=== PATIENT | female | born 1935 | race Caucasian/White ===

== ENCOUNTER 2017-01-30 07:37 | Day surgery (SDC) | payer MEDICARE ==
[~2017-01-30 07:37] MED LIST: Buffered Lidocaine 0.9% SYRIN* 5 ML/SYR SYRINGE INTRADERM ONE; Famotidine IV* 10 MG/ML 2 ML (20 mg) IV ONE
[2017-01-30] MEDS ORDERED: Famotidine IV* 10 MG/ML 2 ML (20 mg) ONE (08:20)
[2017-01-30] MEDS ORDERED: Bupivacaine 0.5% SDV PF* 30 ML VIAL ONE (08:30)
[2017-01-30] MEDS ORDERED: Lidocaine 1% INJ* 10 MG/ML 30 ML SDV ONE (08:30)
[2017-01-30] MEDS ORDERED: Levalbuterol 0.63MG/3ML NEB INH ONE (08:33)
[2017-01-30] MEDS ORDERED: Acetaminophen TAB* 325 MG PO PRN (08:35)
[2017-01-30] MEDS ORDERED: oxyCODONE TAB* 5 MG TAB PO PRN (08:35)
[2017-01-30] MEDS ORDERED: HYDROmorphone* 1 MG/ML 1 ML SYR IV PRN (08:35)
[2017-01-30] MEDS ORDERED: DiMENhydriNATE IV* 50 MG/ML VIAL IV PUSH PRN (08:35)
[2017-01-30] MEDS ORDERED: Levalbuterol 1.25MG/0.5ML NEB ONE (08:38)
[2017-01-30] MEDS ORDERED: KETAMINE HCL* 50 MG/ML 10 ML VIAL ONE (08:43)
[2017-01-30] MEDS ORDERED: fentaNYL* 50 MCG/ML 2 ML VIAL (100 MCG VIAL) ONE (08:43)
[2017-01-30] MEDS ORDERED: Midazolam* 1 MG/ML 5 ML VIAL (5 MG) ONE (08:43)
[2017-01-30] MEDS ORDERED: Lidocaine 2% PF * 5 ML VIAL ONE (08:48)
[2017-01-30] MEDS ORDERED: Ketorolac INJ* 30 MG/ML 1 ML VIAL ONE (08:48)
[2017-01-30] MEDS ORDERED: Propofol* 10 MG/ML 20 ML BTL IV PUSH ONE (08:48)
[2017-01-30] MEDS ORDERED: Ondansetron INJ* 2 MG/ML VIAL ONE (08:48)
--- NOTE | 2017-01-30 10:29 | RAD ---
INDICATION: chest port placement COMPARISONS: None relevant TECHNIQUE: Fluoroscopy was provided for a vascular access procedure. Total fluoroscopy time is: 80.6 seconds FINDINGS: Spot images demonstrate a right-sided chest port from a subclavian approach with the tip overlying the superior vena cava. IMPRESSION: FLUOROSCOPY WAS PROVIDED FOR A VASCULAR ACCESS PROCEDURE CPT II Codes: 6045F
--- NOTE | 2017-01-30 10:30 | RAD ---
HISTORY: Status post chest port placement COMPARISONS: November 28, 2016 VIEWS:1: Single frontal portable view of the chest at 10:08 AM FINDINGS: LINES AND TUBES: A right-sided chest port is noted. The tip overlies the superior vena cava. CARDIOMEDIASTINAL SILHOUETTE: The cardiomediastinal silhouette is normal for portable technique. PLEURA: There is no appreciable pneumothorax. LUNG PARENCHYMA: There is hyperinflation ABDOMEN: The upper abdomen is clear. There is no subphrenic gas. BONES AND SOFT TISSUES: No bone or soft tissue abnormalities are noted. IMPRESSION: LINES AND TUBES ABOVE. HYPERINFLATION. NO ACTIVE CARDIOPULMONARY DISEASE.
[2017-01-30 11:10] VITALS: BP 136/50
--- NOTE | 2017-01-31 03:05 | OP ---
[facility]: [facility]; Dr. Teofilo Delgado OPERATIVE NOTE: DATE OF OPERATION: 01/30/17 DATE OF : 35 SURGEON: Hermelinda Jaramillo MD MORTGAGE PROTECTION SPECIALIST: There was no data assistant for this case. PRE-OP DIAGNOSIS: Ovarian cancer. POST-OP DIAGNOSIS: Ovarian cancer. OPERATIVE PROCEDURE: PowerPort placement. INDICATION: Ms. López is an 81-year-old woman with a recent diagnosis of ovarian cancer, who must undergo chemotherapy. Plans were therefore made for PowerPort placement. She was brought to the op erating room, placed on the OR table in a supine position and given IV sedation. The right chest wa s prepped and draped in the usual sterile fashion. After infiltrating with local anesthetic and usi ng a Seldinger technique, a wire was placed into the right subclavian vein. A port pocket was then created by infiltrating the chest wall with local anesthetic making an incision and elevating the sk in inferiorly. Subcutaneous tissue was divided with electrocautery to do this. Once the pocket was of a size to accommodate the port, the catheter was tunneled from the port pocket site to the wire exit site and then a dilator and introducer were placed over the wire. The dilator and wire were re moved. The catheter was advanced through the introducer under fluoroscopic visualization into the s uperior vena cava. The introducer was then peeled away. The catheter was trimmed to an appropriate length and attached to the port, which was inserted into the port pocket. The port was secured to t he chest wall with 2-0 Surgipro stitches and then the function of the port was checked and found to be adequate. Closure was then accomplished with 3-0 Polysorb in subcutaneous layer, and the skin wa s closed with 4-0 Surgipro in a subcuticular fashion. Since she was going directly to chemotherapy from the OR, an angled Bradford needle was placed into the port. The port was flushed and then the dry sterile dressing was applied. All sponge and instrument counts were correct. The patient tolerate d the procedure well and was transferred to Recovery in a stable condition. [id number]/[facility] #: [id number]
== END 2017-01-30 10:49 ==
LOC: OR 07:37
PROVIDERS: ATTEND Surgery
DX: C56.9 Malignant neoplasm of unspecified ovary (principal); I47.1 Supraventricular tachycardia; I10 Essential (primary) hypertension; J44.9 Chronic obstructive pulmonary disease, unspecified; Z87.891 Personal history of nicotine dependence; Z85.3 Personal history of malignant neoplasm of breast; R91.8 Other nonspecific abnormal finding of lung field
CPT/HCPCS: 71010; A9270-GY; C1788; J1642; J1885; J2001; J2250; J2405; J2704; J3010

== ENCOUNTER 2017-02-17 01:21 | Emergency (ER) | payer MEDICARE ==
--- NOTE | 2017-02-17 02:07 | ED ---
Key Barrera Edward, scribed for Leroy Iniguez MD on 02/17/17 at 0143 . Adult Trauma - HPI Summary HPI Summary: 81 y/o female BIBA s/p fall. Patient c/o bilateral lower back pain. Associated sx: chronic L shoulder pain. The patient was standing while getting a glass of water from the fridge when she fell backwards and hit the floor. Denies hitting head. No LOC. Patient normally uses a cane to get around. - History of Current Complaint Stated Complaint: FALL Hx Obtained From: Patient Mechanism of Injury: Fall Loss of Consciousness: no loss of consciousness Onset of Pain: Immediate Location: Back - Lower back Associated Signs & Symptoms: Positive: Other: - Chronic L shoulder pain. Negative: Loss of Consciousness - Additional Pertinent History Primary Care Physician: BRO - Allergy/Home Medications Allergies/Adverse Reactions: Allergies Allergy/AdvReac Type Severity Reaction Status Date / Time Penicillins Allergy Unknown Rash Verified 01/30/17 08:04 Vancomycin Allergy Unknown RED MAN Verified 01/30/17 08:04 SYNDROME Adhesive Tape Allergy SKIN Verified 01/30/17 08:04 REDNESS Latex Allergy RASH AND Verified 01/30/17 08:04 ITCHY PMH/Surg Hx/FS Hx/Imm Hx Previously Healthy: No Endocrine/Hematology History: Denies: Hx Diabetes Cardiovascular History: Reports: Hx Angina, Hx Hypercholesterolemia, Hx Hypertension, Other Cardiovascular Problems/Disorders - HTN, ON MEDS, missed beats Beth Barrera 11/29/16 admission Denies: Hx Congestive Heart Failure, Hx Coronary Artery Disease, Hx Myocardial Infarction, Hx Valvular Heart Disease Respiratory History: Denies: Hx Asthma, Hx Chronic Obstructive Pulmonary Disease (COPD) GI History: Reports: Hx Gastroesophageal Reflux Disease - ON MEDICATION FOR, Hx Hiatal Hernia, Hx Jaundice - YELLOW JAUNDICE A CHILD History: Denies: Hx Renal Disease Musculoskeletal History: Reports: Hx Arthritis - LEFT SHOULDER, Other Musculoskeletal History - cellulitis Sensory History: Reports: Hx Cataracts - BILATERAL, Hx Contacts or Glasses - GLASSES Denies: Hx Hearing Aid Opthamlomology History: Reports: Hx Cataracts - BILATERAL, Hx Contacts or Glasses - GLASSES - Cancer History Cancer Type, 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 11/2010 - ILEOSTOMY REMOVED-[facility] [place]. TONSILLECTOMY A CHILD. LEFT INGUINAL HERNIA REPAIR -[facility]. RIGHT INGUINAL HERNIA REPAIR-[facility]. 09/07/2012- VENTRAL HERNIA REPAIR- [facility]. VAGINAL HYSTERECTOMY-[facility]. RIGHT BREAST LUMPECTOMY-[facility]. EYE SURGERY Hx Anesthesia Reactions: No - Immunization History Date of Tetanus Vaccine: utd Date of Influenza Vaccine: utd Infectious Disease History: Denies: Traveled Outside the [place] in Last 30 Days Comment Only: Hx Hepatitis - YELLOW JAUNDICE A CHILD - Family History Known Family History: Positive: Hypertension - Social History Occupation: Retired Lives: Alone Alcohol Use: None Hx Substance Use: No Substance Use Type: Reports: None Hx Tobacco Use: Yes Smoking Status (MU): Former Smoker Amount Used/How Often: 1/2 PPD X 50 YEARS Review of Systems Constitutional: Negative Eyes: Negative ENT: Negative Cardiovascular: Negative Respiratory: Negative Gastrointestinal: Negative Genitourinary: Negative Positive: Arthralgia - L shoulder pain (chronic), Myalgia - Bilateral lower back pain Skin: Negative Neurological: Negative Negative: Syncope Psychological: Normal All Other Systems Reviewed And Are Negative: Yes Physical Exam Triage Information Reviewed: Yes Vital Signs On Initial Exam: Initial Vitals Temp Pulse Resp BP Pulse Ox 98 F 81 16 158/46 95 02/17/17 01:37 02/17/17 01:37 02/17/17 01:37 02/17/17 01:37 02/17/17 01:37 Vital Signs Reviewed: Yes Appearance: Positive: Pain Distress - mild discomfort, Thin Skin: Positive: Warm Head/Face: Positive: Normal Head/Face Inspection Eyes: Positive: GRETA ENT: Positive: Hearing grossly normal Neck: Positive: Supple, Nontender Respiratory/Lung Sounds: Positive: Breath Sounds Present Cardiovascular: Positive: RRR Abdomen Description: Positive: Soft Musculoskeletal: Positive: Other - mild diffuse lower lumbar tenderness Neurological: Positive: Alert, Oriented to Person Place, Time Psychiatric: Positive: Affect/Mood Appropriate Diagnostics - Vital Signs Vital Signs Temp Pulse Resp BP Pulse Ox 02/17/17 01:39 98 F 81 16 154/46 95 02/17/17 01:37 98 F 81 16 158/46 95 - Laboratory Lab Statement: Any lab studies that have been ordered have been reviewed, and results considered in the medical decision making process. - Radiology Lumbar spine XR Xray Interpretation: No Acute Changes - Negative for acute pathology Radiology Interpretation Completed By: ED Physician Re-Evaluation - Re-Evaluation First Eval Change: Improved - results d/w pt Adult Trauma Course/Dx - Course Assessment/Plan: 81 y/o female BIBA s/p fall. Patient c/o bilateral lower back pain. Associated sx: chronic L shoulder pain. No LOC, and pt did not hit her head. Lumbar spine XR negative for acute pathology. Pt will be d/c home with f/ u with PCP. - Diagnoses Provider Diagnoses: Contusion Discharge - Discharge Plan Condition: Stable Disposition: HOME Patient Education Materials: Contusion in Adults (ED) Referrals: Teofilo Delgado MD [Primary Care Provider] - 3 Days (Please follow up in 2-3 days) The documentation as recorded by the Key fuller Edward accurately reflects the service I personally performed and the decisions made by , Leroy Iniguez MD.
[2017-02-17 03:14] VITALS: BP 141/51
--- NOTE | 2017-02-17 08:10 | RAD ---
Indication: Fall, back pain 5 views of lumbar spine demonstrates mild compression of the L3 vertebra of less than 25%. Osteopenia is noted. IMPRESSION: Less than 25% compression of L3.
== END 2017-02-17 03:13 | disposition home or self-care (01) ==
LOC: ED 01:21
DX: T14.8 Other injury of unspecified body region (principal); W19.XXXA Unspecified fall, initial encounter; Y93.89 Activity, other specified; Y92.9 Unspecified place or not applicable; I10 Essential (primary) hypertension; E78.00 Pure hypercholesterolemia, unspecified; K21.9 Gastro-esophageal reflux disease without esophagitis; M54.5 Low back pain; M25.512 Pain in left shoulder; G89.29 Other chronic pain; Z87.891 Personal history of nicotine dependence; Z88.0 Allergy status to penicillin; Z85.3 Personal history of malignant neoplasm of breast
CPT/HCPCS: 72110

== ENCOUNTER 2017-02-22 16:02 | Inpatient (IN) | payer MEDICARE ==
[2017-02-22 18:30] LABS: Hematocrit 21 % (35-47); Mean Corpuscular HGB Conc 34 g/dl (31-36); Mean Corpuscular Hemoglobin 30 pg (27-31); Mean Corpuscular Volume 91 fL (80-97); Mean Platelet Volume 7 um3 (7.4-10.4); Red Cell Distribution Width 20 % (10.5-15); White Blood Count 6.5 10^3/ul (3.5-10.8)
[2017-02-22 18:44] LABS: Albumin 3.1 g/dL (3.2-5.2); BUN/Creatinine Ratio 24.5 (8-20); C Reactive Protein 62.42 mg/L (< 5.00); Calcium 8.8 mg/dL (8.6-10.3); EGFR Non-African American 49.8 (>60); Globulin 3.1 g/dL (2-4); Potassium 2.9 mmol/L (3.5-5.0); Total Bilirubin 0.5 mg/dL (0.2-1.0); Total Protein 6.2 g/dL (6.4-8.9)
[2017-02-22] MEDS ORDERED: Potassium Chlor TAB* 20 MEQ TAB.ER PO ONE (18:54)
[2017-02-22 19:14] LABS: Magnesium 1.5 mg/dL (1.9-2.7)
--- NOTE | 2017-02-22 19:33 | RAD ---
CLINICAL HISTORY: Right hip and pelvic pain after a fall almost one week earlier COMPARISON: CTA abdomen and pelvis with runoff dated October 13, 2016 TECHNIQUE: Multiple contiguous axial CT scans were obtained of the abdomen and pelvis after the administration of intravenous contrast. Coronal and sagittal multiplanar reformations are submitted for review. FINDINGS: The visualized bones of the pelvis and right hip are intact and appropriately aligned. There is no discernible fracture or dislocation. Degenerative changes of the lumbar spine includes loss of intervertebral disc height. Again seen is a mixed attenuation, partially septated lesion in the right upper pelvis/abdomen measuring 11.7 x 15.6 cm in the axial plane, slightly smaller when compared to the previous CTA. The visualized portions of the small and large bowel are not pathologically distended. There is surgical material at the right hemicolon. There is advanced calcified atherosclerosis of the lower abdominal aorta and iliac arteries. IMPRESSION: 1. Age-appropriate degenerative changes of the low lumbar spine, pelvis and right hip without displaced fracture or dislocation. 2. There is been a small interval decrease in the size of the left adnexal mixed attenuation mass when compared to the October 13, 2016 CTA. 3. Additional chronic, degenerative and iatrogenic findings described in the body of the report.
[2017-02-22] MEDS ORDERED: Magnesium Sulfate 1 GM IV* 1 GM/100 ML BAG IV ONE (19:44)
[2017-02-22] MEDS: KCL 10 MEQ/50 ML IVPREMIX* 10 MEQ/50 ML BAG IV SCH ×2 (20:03→23:28)
[2017-02-22] MEDS ORDERED: Albuterol HFA INHALER* 8 gm MDI INH PRN (21:35)
[2017-02-22] MEDS ORDERED: Chlorpheniramine Maleate TAB* 4 MG PO PRN (21:35)
[2017-02-22] MEDS ORDERED: Morphine INJ* 2 MG/ML 1 ML SYRINGE IV PRN (21:37)
[2017-02-22] MEDS ORDERED: Ondansetron INJ* 2 MG/ML VIAL IV PRN (21:37)
--- NOTE | 2017-02-22 22:36 | ED ---
Fish Barrera Thomas, scribed for Raleigh Alicia MD on 02/22/17 at 1640 . Lower Extremity - HPI Summary HPI Summary: The pt is an 81 y/o F accompanied by daughter presenting to the ED c/o leg pain and hip pain s/p a fall 6 days ago. She denies significant pain whe she remains motionless, but she describes a pain 4-5/10 when she is standing or ambulating. She is a [place] patient of Dr. Christensen and she states that she has a pelvic mass. After her initial fall, she had lower back pain and an XR performed 6 days ago revealed a contusion. Over the last week, she had SOB (with exertion) and has had difficulty walking. Her last chemotherapy appointment was 3 weeks ago. Today in the ED, she additionally c/o a cough (unchanged since a week ago). She denies nausea, fevers, and chills. PMHx: angina, HLD, HTN, jaundice, GERD, arthritis. PSHx: sigmoidecomy, ileostomy. SHx: former smoker, no alcohol, no illicit drugs. FHx: HTN. - History of Current Complaint Chief Complaint: EDExtremityLower Stated Complaint: RT LEG/HIP PAIN Time Seen by Provider: 02/22/17 16:25 Hx Obtained From: Patient, Family/Toddler Caregiver - accompanied by daughter Mechanism Of Injury: Fall From A Standing Position Onset of Pain: Days - 6 days Onset/Duration: Still Present Severity Currently: Moderate Pain Intensity: 5 Pain Scale Used: 0-10 Numeric Timing: Constant Location: Is Discrete @ - leg pain, hip pain Associated Signs And Symptoms: Positive: Other - POS: SOB (with exertion), difficulty walking, cough (unchanged since a week ago); NEG: nausea, chills. Negative: Fever Aggravating Factor(s): Standing, Ambulation, Movement Alleviating Factor(s): Nothing - Allergies/Home Medications Allergies/Adverse Reactions: Allergies Allergy/AdvReac Type Severity Reaction Status Date / Time Penicillins Allergy Unknown Rash Verified 01/30/17 08:04 Vancomycin Allergy Unknown RED MAN Verified 01/30/17 08:04 SYNDROME Adhesive Tape Allergy SKIN Verified 01/30/17 08:04 REDNESS Latex Allergy RASH AND Verified 01/30/17 08:04 ITCHY PMH/Surg Hx/FS Hx/Imm Hx Previously Healthy: No Endocrine/Hematology History: Denies: Hx Diabetes Cardiovascular History: Reports: Hx Angina, Hx Hypercholesterolemia, Hx Hypertension, Other Cardiovascular Problems/Disorders - HTN, ON MEDS, missed beats Mobitz I 11/29/16 admission Denies: Hx Congestive Heart Failure, Hx Coronary Artery Disease, Hx Myocardial Infarction, Hx Valvular Heart Disease Respiratory History: Denies: Hx Asthma, Hx Chronic Obstructive Pulmonary Disease (COPD) GI History: Reports: Hx Gastroesophageal Reflux Disease - ON MEDICATION FOR, Hx Hiatal Hernia, Hx Jaundice - YELLOW JAUNDICE A CHILD History: Denies: Hx Renal Disease Musculoskeletal History: Reports: Hx Arthritis - LEFT SHOULDER, Other Musculoskeletal History - cellulitis Sensory History: Reports: Hx Cataracts - BILATERAL, Hx Contacts or Glasses - GLASSES Denies: Hx Hearing Aid Opthamlomology History: Reports: Hx Cataracts - BILATERAL, Hx Contacts or Glasses - GLASSES - Cancer History Cancer Type, Location and Year: BREAST [place] Hx Chemotherapy: No Hx Radiation Therapy: Yes - Surgical History Surgery Procedure, Year, and Place: 09/2010- [place] [place] [place] TONSILLECTOM[place] A CHILD. [place] [place] [place] 09/07/2012- [place] [facility] [place]. [place] [place] [place] E[place] Hx Anesthesia Reactions: No - Immunization History Date of Tetanus Vaccine: utd Date of Influenza Vaccine: utd Infectious Disease History: No Infectious Disease History: Denies: Traveled Outside the US in Last 30 Days Comment Only: Hx Hepatitis - YELLOW JAUNDICE A CHILD - Family History Known Family History: Positive: Hypertension - Social History Alcohol Use: None Hx Substance Use: No Substance Use Type: Reports: None Hx Tobacco Use: Yes Smoking Status (MU): Former Smoker Amount Used/How Often: 1/2 PPD X 50 YEARS Review of Systems Constitutional: Negative Negative: Fever, Chills Eyes: Negative ENT: Negative Cardiovascular: Negative Positive: Shortness Of Breath - with exertion, Cough - unchanged since a week ago Gastrointestinal: Negative Negative: Nausea Genitourinary: Negative Positive: Other - POS: hip pain, leg pain (low pain when motionless, 4-5/10 when standing or ambulating), difficulty walking Skin: Negative Neurological: Negative Psychological: Normal All Other Systems Reviewed And Are Negative: Yes Physical Exam - Summary Physical Exam Summary: VITAL SIGNS: Reviewed. GENERAL: ~Patient is a well-developed and nourished female who is lying comfortable in the stretcher. ~Patient is not in any acute respiratory distress. HEAD AND FACE: No signs of trauma. ~No ecchymosis, hematomas or skull depressions. No sinus tenderness. EYES: PERRLA, EOMI x 2, No injected conjunctiva, no nystagmus. EARS: Hearing grossly intact. Ear canals and tympanic membranes are within normal limits. MOUTH: Oropharynx within normal limits. NECK: Supple, trachea is midline, no adenopathy, no JVD, no carotid bruit, no c- spine tenderness, neck with full ROM. CHEST: Symmetric, no tenderness at palpation LUNGS: Clear to auscultation bilaterally. No wheezing or crackles. CVS: Regular rate and rhythm, S1 and S2 present, no murmurs or gallops appreciated. ABDOMEN: Soft, non-tender. No signs of distention. No rebound no guarding, and no masses palpated. Bowel sounds are normal. EXTREMITIES: Decreased ROM in her R hip secondary to pain. Good pulses, good cap refill. 1+ edema in both lower extremities. Otherwise, FROM in all other major joints, no cyanosis or clubbing. NEURO: Alert and oriented x 3. No acute neurological deficits. Speech is normal and follows commands. SKIN: Dry and warm Triage Information Reviewed: Yes Vital Signs On Initial Exam: Initial Vitals Temp Pulse Resp BP Pulse Ox 97.3 F 71 22 142/43 100 02/22/17 16:13 02/22/17 16:13 02/22/17 16:13 02/22/17 16:13 02/22/17 16:13 Vital Signs Reviewed: Yes - Chapin Coma Scale Coma Scale Total: 15 Diagnostics - Vital Signs Vital Signs Temp Pulse Resp BP Pulse Ox 02/22/17 16:13 97.3 F 71 22 142/43 100 - Laboratory Lab Results: Lab Results 02/22/17 02/22/17 Range/Units 18:20 18:20 WBC 6.5 (3.5-10.8) 10^3/ul RBC 2.30 L (4.0-5.4) 10^6/ul Hgb 7.0 L (12.0-16.0) g/dl Hct 21 L (35-47) % MCV 91 (80-97) fL MCH 30 (27-31) pg MCHC 34 (31-36) g/dl RDW 20 H (10.5-15) % Plt Count 238 (150-450) 10^3/ul MPV 7 L (7.4-10.4) um3 Neut % (Auto) 74.5 (38-83) % Lymph % (Auto) 10.5 L (25-47) % Prentiss % (Auto) 13.1 H (1-9) % Eos % (Auto) 1.5 (0-6) % Baso % (Auto) 0.4 (0-2) % Absolute Neuts (auto) 4.9 (1.5-7.7) 10^3/ul Absolute Lymphs (auto) 0.7 L (1.0-4.8) 10^3/ul Absolute Monos (auto) 0.9 H (0-0.8) 10^3/ul Absolute Eos (auto) 0.1 (0-0.6) 10^3/ul Absolute Basos (auto) 0 (0-0.2) 10^3/ul Absolute Nucleated RBC 0.01 10^3/ul Nucleated RBC % 0.2 Sodium 131 L (133-145) mmol/L Potassium 2.9 L (3.5-5.0) mmol/L Chloride 91 L (101-111) mmol/L Carbon Dioxide 33 H (22-32) mmol/L Anion Gap 7 (2-11) mmol/L BUN 26 H (6-24) mg/dL Creatinine 1.06 H (0.51-0.95) mg/dL Est GFR ( Amer) 64.0 (>60) Est GFR (Non-Af Amer) 49.8 (>60) BUN/Creatinine Ratio 24.5 H (8-20) Glucose 111 H (70-100) mg/dL Calcium 8.8 (8.6-10.3) mg/dL Magnesium 1.5 L (1.9-2.7) mg/dL Total Bilirubin 0.50 (0.2-1.0) mg/dL AST 13 (13-39) U/L ALT 10 (7-52) U/L Alkaline Phosphatase 106 H (34-104) U/L C-Reactive Protein 62.42 H (< 5.00) mg/L Total Protein 6.2 L (6.4-8.9) g/dL Albumin 3.1 L (3.2-5.2) g/dL Globulin 3.1 (2-4) g/dL Albumin/Globulin Ratio 1.0 (1-3) Lipase 45 (11.0-82.0) U/L Result Diagrams: 02/22/17 18:20 02/22/17 18:20 Lab Statement: Any lab studies that have been ordered have been reviewed, and results considered in the medical decision making process. - CT CT Pelvis CT Interpretation: Positive (See Comments) - 1. Age-appropriate degenerative changes of the low lumbar spine, pelvis and right hip without displaced fracture or dislocation. 2. There is been a small interval decrease in the size of the left adnexal mixed attenuation mass when compared to the October 13, 2016 CTA. 3. Additional chronic, degenerative and iatrogenic findings described in the body of the report. CT Interpretation Completed By: Radiologist - EKG 20:31 Cardiac Rate: NL - 75 BPM EKG Interpretation: Sinus rhythm without ST elevations Re-Evaluation - Re-Evaluation First Eval Re-Evaluation Time: 20:08 Change: Unchanged Lower Extremity Course/Dx - Course Assessment/Plan: The pt is an 81 y/o F accompanied by daughter presenting to the ED c/o leg pain and hip pain s/p a fall 6 days ago. Her pain is low when she is motionless and is 4-5/10 when she is standing or ambulating. She is a [place] patient of Dr. Christensen and she has a pelvic mass. After her initial fall, she had lower back pain and an XR performed 6 days ago revealed a contusion. Over the last week, she had SOB (with exertion) and has had difficulty walking. Her last chemotherapy appointment was 3 weeks ago. Today, she c/o cough (unchanged since a week ago). She denies nausea, fevers, and chills. PMHx: angina, HLD, HTN, jaundice, GERD, arthritis. PSHx: sigmoidecomy, ileostomy. SHx: former smoker, no alcohol, no illicit drugs. FHx: HTN. CT Pelvis reveals 1. Age-appropriate degenerative changes of the low lumbar spine, pelvis and right hip without displaced fracture or dislocation. 2. There is been a small interval decrease in the size of the left adnexal mixed attenuation mass when compared to the October 13, 2016 CTA. 3. Additional chronic, degenerative and iatrogenic findings described in the body of the report. Test results show acute on chronic anemia with hemoglobin 7.0, hematocrit 21, Sodium 131, Potassium 2.9, CO2 33, BUN 26, Creatinine 1.06, CRP 63.42. Magnesium is 1.5. In the ED course, the patient was given IV fluids, potassium for the hypokalemia, and magnesium for the hypomagnesemia. The patient reports that her symptoms improved, however she still has pain but only when she ambulates. Therefore, the patient is not able to ambulate secondary to pain. I discussed the case with Dr. Sands, and he recommends admission to the medical team. I discussed the case with Dr. Fabian, who accepts the patient for admission. - Diagnoses Differential Diagnosis/HQI/PQRI: Positive: Arthritis, Bursitis, Contusion, Dislocation, Fracture (Closed), Sprain, Strain Provider Diagnoses: Intractable hip pain, Unable to ambulate, acute on chronic anemia - Physician Notifications Discussed Care Of Patient With: Alec Sands Time Discussed With Above Provider: 20:04 Instructed by Provider To: Other - Discussed patient care. Also consulted with Dr. Fabian, utility worker driver, who will admit the patient at 20:17. Discharge - Discharge Plan Condition: Fair Disposition: ADMITTED TO [facility] The documentation as recorded by the Fish fuller Thomas accurately reflects the service I personally performed and the decisions made by me, Raleigh Alicia MD.
[2017-02-22] MEDS: NS 0.9% w/ 20 Meq KCL 1000 ML* 1,000 ML IV SCH (23:27)
[2017-02-22] MEDS: Heparin VIAL(*) 5000 UNITS/ML VIAL (FIVE THOUSAND) SUBCUT SCH (23:28)
[2017-02-22 23:35] LABS: Urine Bilirubin Negative (Negative); Urine Glucose Negative (Negative); Urine Nitrite Negative (Negative)
[2017-02-22] MEDS: Acetaminophen TAB* 325 MG PO PRN (23:59)
[2017-02-23] MEDS: Heparin VIAL(*) 5000 UNITS/ML VIAL (FIVE THOUSAND) SUBCUT SCH ×3 (05:51→22:02)
[2017-02-23 07:22] LABS: Hematocrit 20 % (35-47); Hemoglobin 6.6 g/dl (12.0-16.0); Mean Corpuscular HGB Conc 34 g/dl (31-36); Mean Corpuscular Hemoglobin 31 pg (27-31); Mean Corpuscular Volume 91 fL (80-97); Mean Platelet Volume 8 um3 (7.4-10.4); Red Blood Count 2.14 10^6/ul (4.0-5.4); Red Cell Distribution Width 20 % (10.5-15)
[2017-02-23 07:36] LABS: BUN/Creatinine Ratio 24.4 (8-20); Calcium 8.2 mg/dL (8.6-10.3); EGFR Non-African American 66.9 (>60); Potassium 3.4 mmol/L (3.5-5.0)
[2017-02-23] MEDS: Losartan TAB* 25 MG PO SCH (08:32)
[2017-02-23] MEDS: Furosemide TAB* 20 MG PO SCH (08:32)
[2017-02-23] MEDS: Atenolol TAB* 25 MG PO SCH (08:32)
[2017-02-23] MEDS: Calcium/Vitamin D TAB 250/125* TAB PO SCH (08:32)
[2017-02-23] MEDS: Omeprazole CAP* 20 MG PO SCH (08:32)
[2017-02-23] MEDS: Ferrous Sulfate TAB* 325 MG PO SCH (08:36)
[2017-02-23] MEDS: Cholecalciferol TAB* 1000 UNITS PO SCH (08:36)
[2017-02-23] MEDS: Hydrochlorothiazide TAB* 25 MG PO SCH (08:36)
[2017-02-23] MEDS: NS 0.9% w/ 20 Meq KCL 1000 ML* 1,000 ML IV SCH (10:10)
--- NOTE | 2017-02-23 11:53 | HP ---
CC: Dr. Teofilo Delgado; Dr. Avelino Christensen * HISTORY AND PHYSICAL: DATE OF ADMISSION: 02/22/17 CHIEF COMPLAINT: Weakness and intractable pain. HISTORY OF PRESENT ILLNESS: The patient is an 81-year-old woman, who said she fell on Thursday night. She is not sure what happened. She is not sure if she slipped or lost her balance, but she says she fell backwards and hit her back. She did not hit her head. She could not get up, so she hollered and eventually her grandson came and put her in a chair. They called 911 and sent her to the ER. She was evaluated at that time, found no fracture and sent home. She used a walker at home. She did not use it before. She has difficulty even getting around with the walker. She has pain in the hip and the right leg and shoulders hurt too much, so she cannot actively use the walker. Her daughter came to stay with her. The daughter's friend, Gabby Riley, who was a nurse, came to evaluate her and felt that she should call the on-call doctor, Dr. Sands , and Dr. Sands recommended she come to the ER. It should be noted that the patient has just finished her 2nd cycle of chemo and was supposed to start her 3rd cycle on Thursday, but was unable to get there. The patient did have a pelvic CT, which did not show any evidence of fracture still. The patient is being admitted for intractable pain and weakness. PAST MEDICAL HISTORY: She has a past medical history significant for a recently diagnosed ovarian cancer in October of this year, status post 2 cycles of chemo; hypertension; gastric ulcer; history of MRSA; "sensitive skin"; breast cancer in the right side, status post lumpectomy and radiation; COPD. CURRENT MEDICATIONS: As follows: 1. Triamcinolone ointment administered topical daily. 2. Umeclidinium/vilanterol metered dose inhaler 1 inhalation in the evening. 3. Chlorpheniramine 4 mg in the morning as needed. 4. Albuterol sulfate 2 puffs every 4 hours as needed. 5. Losartan and hydrochlorothiazide 100/12.5 one tab in the morning. 6. Furosemide 20 mg in the morning. 7. Ferrous sulfate 65 mg daily. 8. Cholecalciferol 1000 units daily. 9. Calcium carbonate with vitamin D 1 tablet daily. 10. Atenolol 25 mg in the morning. 11. Omeprazole 20 mg in the morning. ALLERGIES: She has an allergy/adverse reaction to PENICILLIN, which causes a rash; VANCOMYCIN, she gets Red man syndrome with, but she tolerates it at a slow rate. She is also allergic to LASIX. FAMILY HISTORY: Notable for mother who had breast cancer. The patient had a daughter who of lung cancer. Family history also notable for father who of heart disease and aneurysm. SOCIAL HISTORY: Retired, lives alone. 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 She is a . Five children, now with 4. Lives alone. Daughter , Heather Hayes, is her healthcare proxy. No alcohol or drug use. REVIEW OF SYSTEMS: A 14-point review of systems was completed with the patient , all pertinent positives and negatives in the history of present illness, otherwise is negative. PHYSICAL EXAMINATION GENERAL: Pleasant woman, lying in bed, in no acute distress. VITAL SIGNS: Blood pressure 120/50, pulse ox 98%, respiratory rate 19 breaths per minute, heart rate 70 beats per minute, temperature 97.3 degrees. HEENT: Normocephalic and atraumatic. Pupils are equal, round, and reactive. She has got dry mucous membranes. NECK: Supple. No JVD, bruits, palpable thyroid, or lymphadenopathy. CHEST: Clear to auscultation and percussion bilaterally. CARDIOVASCULAR: S1 and S2 appreciated. Regular rate and rhythm. ABDOMEN: Positive bowel sounds in all 4 quadrants. Soft, nontender, and nondistended. No hepatosplenomegaly. EXTREMITIES: No cyanosis or clubbing. She has got bilateral edema. Her lower extremities are extremely dry with some flaking skin, but now warm and not tender. NEURO: Alert and oriented x3, moves all extremities. SKIN: Other than the aforementioned leg dryness and redness, no other significant abnormalities. DIAGNOSTIC STUDIES/LAB DATA: White count 6.5, hemoglobin 7.0, hematocrit 21, platelets of 238. Sodium is 131, potassium 2.9, chloride 91, CO2 of 33, BUN 26 , creatinine 1.06, and glucose 111. Her EKG shows normal sinus rhythm at 75 beats per minute, normal axis, no acute ST- or T-wave changes. CT of the abdomen and pelvis shows age-appropriate degenerative changes at the lower lumbar spine. Pelvis and right hip without displaced fracture at this location. Small interval decrease in the size of the left adrenal mixed attenuation mass when compared to 10/13/16. Additional chronic degenerative and iatrogenic findings described in the body of the report. ASSESSMENT AND PLAN: 1. Weakness and pain. We will place the patient on morphine, Tylenol p.r.n. We will get the patient PT and OT consult. It could also be secondary to anemia which is more profound than it has been before. I suspect this is secondary to chemo, we will check it again in the morning. We will not transfuse at this time. Heme/Onc to see in the morning and to follow up with the patient anyway. 2. Dehydration. 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 Her creatinine is about the same as normal. She is somewhat hypokalemic. I will place her on normal saline with potassium at 100 cc an hour and recheck in a.m. 3. Ovarian cancer management as per Oncology. 4. Chronic obstructive pulmonary disease, stable. Continue current regimen. 5. FEN. Regular diet. 6. DVT prophylaxis. Heparin subcu. 7. The patient is a full code. TIME SPENT: Over 80 minutes was spent on this H and P, more than 45 minutes of which was spent in direct [id number] contact with the patient in evaluation, physical exam, counseling, and coordination of care. [id number]/[facility] #: [id number] MTDD
[2017-02-23] MEDS: traMADol TAB* 50 MG PO PRN (12:10)
[2017-02-23] MEDS: Nystatin TOP POWDER* 15 GM BTL TOPICAL SCH ×2 (12:10→20:10)
[2017-02-23] MEDS: PTO: Umeclidin/Vilant 62.5 MDI 62.5/25 mcg 14 INH ELLIPTA DEVICE INH SCH (17:23)
[2017-02-24] MEDS: NS 0.9% w/ 20 Meq KCL 1000 ML* 1,000 ML IV SCH ×2 (02:35→17:16)
[2017-02-24] MEDS: Acetaminophen TAB* 325 MG PO PRN ×2 (03:05→12:57)
[2017-02-24] MEDS: Heparin VIAL(*) 5000 UNITS/ML VIAL (FIVE THOUSAND) SUBCUT SCH ×3 (05:47→20:11)
[2017-02-24 06:04] LABS: Hematocrit 25 % (35-47); Hemoglobin 8.5 g/dl (12.0-16.0); Mean Corpuscular HGB Conc 34 g/dl (31-36); Mean Corpuscular Hemoglobin 30 pg (27-31); Mean Corpuscular Volume 90 fL (80-97); Mean Platelet Volume 7 um3 (7.4-10.4); Red Blood Count 2.83 10^6/ul (4.0-5.4); Red Cell Distribution Width 18 % (10.5-15); White Blood Count 4.6 10^3/ul (3.5-10.8)
[2017-02-24 06:16] LABS: BUN/Creatinine Ratio 19.2 (8-20); Calcium 8.3 mg/dL (8.6-10.3); EGFR African American 98.4 (>60); EGFR Non-African American 76.5 (>60); Potassium 3.6 mmol/L (3.5-5.0)
[2017-02-24] MEDS: Atenolol TAB* 25 MG PO SCH (08:45)
[2017-02-24] MEDS: Furosemide TAB* 20 MG PO SCH (08:46)
[2017-02-24] MEDS: Ferrous Sulfate TAB* 325 MG PO SCH (08:46)
[2017-02-24] MEDS: Cholecalciferol TAB* 1000 UNITS PO SCH (08:46)
[2017-02-24] MEDS: Losartan TAB* 25 MG PO SCH (08:46)
[2017-02-24] MEDS: Omeprazole CAP* 20 MG PO SCH (08:46)
[2017-02-24] MEDS: Calcium/Vitamin D TAB 250/125* TAB PO SCH (08:46)
[2017-02-24] MEDS: Nystatin TOP POWDER* 15 GM BTL TOPICAL SCH ×3 (08:47→20:11)
[2017-02-24] MEDS: Hydrochlorothiazide TAB* 25 MG PO SCH (08:47)
--- NOTE | 2017-02-24 10:08 | PN ---
Progress Note - Progress Note Date of Service: 02/24/17 SOAP: Subjective: []Feeling fine. Still back pain with any movement, though OK at rest. Does not like morphine and so mostly using Tylenol, although did try Tramadol yesterday which seems to have given some relief. Chronic cough is one of her biggest complaints. Medications: Acetaminophen (Tylenol Tab*) 650 mg PO Q4H PRN PRN Reason: FEVER/PAIN Last Admin: 02/24/17 03:05 Dose: 650 mg Albuterol (Ventolin Hfa Inhaler*) 2 puff INH Q4H PRN PRN Reason: SOB/WHEEZING Atenolol (Tenormin Tab*) 25 mg PO QAM [facility] Last Admin: 02/24/17 08:45 Dose: 25 mg Calcium/Vitamin D (Oscal D Tab 250/125*) 2 tab PO DAILY [facility] Last Admin: 02/24/17 08:46 Dose: 2 tab Chlorpheniramine Maleate (Chlortrimeton Tab*) 4 mg PO QAM PRN PRN Reason: Allergy Symptoms Cholecalciferol (Vitamin D Tab*) 1,000 units PO DAILY [facility] Last Admin: 02/24/17 08:46 Dose: 1,000 units Ferrous Sulfate (Ferrous Sulfate Tab*) 325 mg PO DAILY [facility] Last Admin: 02/24/17 08:46 Dose: 325 mg Furosemide (Lasix Tab*) 20 mg PO QAM [facility] Last Admin: 02/24/17 08:46 Dose: 20 mg Heparin Sodium (Porcine) (Heparin Vial(*)) 5,000 units SUBCUT Q8HR [facility] Last Admin: 02/24/17 05:47 Dose: 5,000 units Hydrochlorothiazide (Hydrodiuril Tab*) 12.5 mg PO DAILY [facility] Last Admin: 02/24/17 08:47 Dose: 12.5 mg Potassium Chloride/Sodium Chloride (Ns 0.9% W/ 20 Meq Kcl 1000 Ml*) 1,000 mls @ 100 mls/hr IV PER RATE [facility] Last Admin: 02/24/17 02:35 Dose: 100 mls/hr Losartan Potassium (Cozaar Tab*) 100 mg PO QAM [facility] Last Admin: 02/24/17 08:46 Dose: 100 mg Morphine Sulfate (Morphine Inj (Syringe)*) 2 mg IV Q2H PRN PRN Reason: PAIN Nystatin (Nystatin Top Powder*) 1 applic TOPICAL TID [facility] Last Admin: 02/24/17 08:47 Dose: 1 applic Omeprazole (Prilosec Cap*) 20 mg PO QAM [facility] Last Admin: 02/24/17 08:46 Dose: 20 mg Ondansetron HCl (Zofran Inj*) 4 mg IV Q4H PRN PRN Reason: NAUSEA Tramadol HCl (Ultram*) 50 mg PO Q8H PRN PRN Reason: PAIN Last Admin: 02/23/17 12:10 Dose: 50 mg Triamcinolone Acetonide (Triamcinolone 0.025% Oint *) 1 applic TOPICAL DAILY PRN PRN Reason: ITCHY SKIN Umeclidinium/Vilanterol (Anoro 62.5/25 Ellipta Device (Nf)) 1 inh INH QPM [facility] Last Admin: 02/23/17 17:23 Dose: 1 puff Objective: [] Vital Signs Temp Pulse Resp BP Pulse Ox 97.8 F 88 15 141/59 89 02/24/17 08:47 02/24/17 08:47 02/24/17 08:47 02/24/17 08:47 02/24/17 08:47 A&Ox3, CRUMP, strength = bilat. HRR, S1S2 LS dim. bases +BS, abd. round, soft, and non-tender +PP=bilat. Laboratory Results - last 24 hr 02/23/17 02/24/17 02/24/17 07:15 05:44 05:44 WBC 4.6 RBC 2.83 L Hgb 8.5 L Hct 25 L MCV 90 MCH 30 MCHC 34 RDW 18 H Plt Count 267 MPV 7 L Neut % (Auto) 64.8 Lymph % (Auto) 16.0 L [place] % (Auto) 15.9 H Eos % (Auto) 2.8 Baso % (Auto) 0.5 Absolute Neuts (auto) 3.0 Absolute Lymphs (auto) 0.7 L Absolute Monos (auto) 0.7 Absolute Eos (auto) 0.1 Absolute Basos (auto) 0 Absolute Nucleated RBC 0.01 Nucleated RBC % 0.3 Sodium 138 Potassium 3.6 Chloride 103 Carbon Dioxide 32 Anion Gap 3 BUN 14 Creatinine 0.73 Est GFR ( Amer) 98.4 Est GFR (Non-Af Amer) 76.5 BUN/Creatinine Ratio 19.2 Glucose 96 Calcium 8.3 L Blood Type A Positive Antibody Screen Negative Crossmatch See Detail Assessment: []81 yo female with ovarian cancer initially felt to be locally advanced however with CTA following C1 showing areas of concern for mets now s/p C2 Carboplatin and Paclitaxel with course complicated by falls and now intractable pain and significant weakness. Work-up thus far negative for fracture and bone mets, ultimately I feel this is linked to her known compression fx. @ L3 (20% loss). Plan: []1. Pain: compression fx. @ L3 likely the source, enc.'d use of Tramadol, reviewed importance of PT 2. Ovarian Cancer: s/p C2 Carboplatin and Paclitaxel, will check Ca125 with AM labs (434 prior to tx.), at this time if she is not able to get up and moving she is not a candidate for further treatment, however would be reasonable to get C3 if she improves. 3. Anemia: secondary to chemotherapy, improved following 2 units PRBC yesterday , will cont. to follow labs 4. Hypokalemia and dehydration: resolved with fluid replacement however with her age and stable BP I would like to hold HCTZ and Losartan for the time being to see if that helps avoid similar episodes (shun. as she is using a loop diuretic for peripheral edema and has a Beta-bernardo as well). 5. Cough: chronic with COPD and question of lung mets, will add Gemmalon Pearls Disposition: she has requested skilled rehab which I think is very appropriate, I will ask Oncology SW to see her as well(? ability to get further chemo and transition to more skilled care)
--- NOTE | 2017-02-24 11:14 | RAD ---
INDICATION: LEFT shoulder, L3, RIGHT hip, RIGHT leg pain. Ovarian cancer; post 2 cycles of chemotherapy.. COMPARISON: January 28, 2017 CT chest and October 13, 2016 CT abdomen pelvis. TECHNIQUE: 20.600 mCi of Tc-99m MDP were injected IV. The whole body was scanned in anterior and posterior projections approximately 2 hours after the injection. Spot images of the pelvis and thorax. FINDINGS: Accounting for asymmetry due to oblique positioning there is no suspicious focal increased activity at the axial or appendicular skeleton to raise concern for bone metastasis or other acute bony pathology. The kidneys are normal in size and position and without evidence for obstructive uropathy. IMPRESSION: No scintigraphic evidence for bone metastasis or fracture. CPT II: CPT II Codes: 3570F
[2017-02-24] MEDS ORDERED: Benzonatate CAP* 100 MG PO PRN (11:47)
[2017-02-24] MEDS: traMADol TAB* 50 MG PO PRN (15:39)
[2017-02-24] MEDS: PTO: Umeclidin/Vilant 62.5 MDI 62.5/25 mcg 14 INH ELLIPTA DEVICE INH SCH (20:50)
[2017-02-25] MEDS: Acetaminophen TAB* 325 MG PO PRN ×2 (01:07→10:39)
[2017-02-25] MEDS: NS 0.9% w/ 20 Meq KCL 1000 ML* 1,000 ML IV SCH (03:08)
[2017-02-25] MEDS: traMADol TAB* 50 MG PO PRN ×2 (05:32→12:26)
[2017-02-25] MEDS: Heparin VIAL(*) 5000 UNITS/ML VIAL (FIVE THOUSAND) SUBCUT SCH ×3 (05:32→22:56)
[2017-02-25 06:01] LABS: Hematocrit 26 % (35-47); Hemoglobin 8.8 g/dl (12.0-16.0); Mean Corpuscular HGB Conc 33 g/dl (31-36); Mean Corpuscular Hemoglobin 30 pg (27-31); Mean Corpuscular Volume 91 fL (80-97); Mean Platelet Volume 7 um3 (7.4-10.4); Red Blood Count 2.91 10^6/ul (4.0-5.4); Red Cell Distribution Width 18 % (10.5-15); White Blood Count 5.2 10^3/ul (3.5-10.8)
[2017-02-25 06:15] LABS: Albumin 2.8 g/dL (3.2-5.2); BUN/Creatinine Ratio 15.3 (8-20); Calcium 8.5 mg/dL (8.6-10.3); EGFR Non-African American 77.7 (>60); Globulin 2.8 g/dL (2-4); Potassium 3.6 mmol/L (3.5-5.0); Total Bilirubin 0.5 mg/dL (0.2-1.0); Total Protein 5.6 g/dL (6.4-8.9)
[2017-02-25] MEDS: Nystatin TOP POWDER* 15 GM BTL TOPICAL SCH ×3 (08:25→22:56)
[2017-02-25] MEDS: Omeprazole CAP* 20 MG PO SCH (08:25)
[2017-02-25] MEDS: Ferrous Sulfate TAB* 325 MG PO SCH (09:15)
[2017-02-25] MEDS: Cholecalciferol TAB* 1000 UNITS PO SCH (09:15)
[2017-02-25] MEDS: Atenolol TAB* 25 MG PO SCH (09:15)
[2017-02-25] MEDS: Calcium/Vitamin D TAB 250/125* TAB PO SCH (09:15)
[2017-02-25] MEDS: Furosemide TAB* 20 MG PO SCH (09:15)
--- NOTE | 2017-02-25 11:59 | PN ---
Progress Note - Progress Note Date of Service: 02/25/17 SOAP: Subjective: []Admitted 3 days ago with intractable pain. Known L3 compression fracture. Work-up without evidence for mets or fracture. Is getting OOB with assistance, but pain with any movement. Seen today while sitting upright in the chair. Has a hard time telling me specifically how the pain is doing (she admits this). Says the Tramadol helps although states she asked for it last night and was told it wasn't available (and per MAR only administered once yesterday. Did take Tramadol this AM. Has been getting up with nursing and per report I am told she sometimes is only 1 assist with rolling walker. Feels better sitting upright. Medications: Acetaminophen (Tylenol Tab*) 650 mg PO Q4H PRN PRN Reason: FEVER/PAIN Last Admin: 02/25/17 10:39 Dose: 650 mg Albuterol (Ventolin Hfa Inhaler*) 2 puff INH Q4H PRN PRN Reason: SOB/WHEEZING Atenolol (Tenormin Tab*) 25 mg PO QAM [facility] Last Admin: 02/25/17 09:15 Dose: 25 mg Benzonatate (Tessalon Cap*) 100 mg PO BID PRN PRN Reason: COUGH Calcium/Vitamin D (Oscal D Tab 250/125*) 2 tab PO DAILY [facility] Last Admin: 02/25/17 09:15 Dose: 2 tab Chlorpheniramine Maleate (Chlortrimeton Tab*) 4 mg PO QAM PRN PRN Reason: Allergy Symptoms Cholecalciferol (Vitamin D Tab*) 1,000 units PO DAILY [facility] Last Admin: 02/25/17 09:15 Dose: 1,000 units Ferrous Sulfate (Ferrous Sulfate Tab*) 325 mg PO DAILY [facility] Last Admin: 02/25/17 09:15 Dose: 325 mg Furosemide (Lasix Tab*) 20 mg PO QAM [facility] Last Admin: 02/25/17 09:15 Dose: 20 mg Heparin Sodium (Porcine) (Heparin Vial(*)) 5,000 units SUBCUT Q8HR [facility] Last Admin: 02/25/17 05:32 Dose: 5,000 units Potassium Chloride/Sodium Chloride (Ns 0.9% W/ 20 Meq Kcl 1000 Ml*) 1,000 mls @ 100 mls/hr IV PER RATE [facility] Last Admin: 02/25/17 03:08 Dose: 100 mls/hr Ibuprofen (Motrin Tab*) 400 mg PO TID [facility] Morphine Sulfate (Morphine Inj (Syringe)*) 2 mg IV Q2H PRN PRN Reason: PAIN Nystatin (Nystatin Top Powder*) 1 applic TOPICAL TID [facility] Last Admin: 02/25/17 08:25 Dose: 1 applic Omeprazole (Prilosec Cap*) 20 mg PO QAM [facility] Last Admin: 02/25/17 08:25 Dose: 20 mg Ondansetron HCl (Zofran Inj*) 4 mg IV Q4H PRN PRN Reason: NAUSEA Tramadol HCl (Ultram*) 50 mg PO Q8H PRN PRN Reason: PAIN Last Admin: 02/25/17 05:32 Dose: 50 mg Triamcinolone Acetonide (Triamcinolone 0.025% Oint *) 1 applic TOPICAL DAILY PRN PRN Reason: ITCHY SKIN Umeclidinium/Vilanterol (Anoro 62.5/25 Ellipta Device (Nf)) 1 inh INH QPM [facility] Last Admin: 02/24/17 20:50 Dose: Not Given Objective: [] Vital Signs Temp Pulse Resp BP Pulse Ox 98.2 F 79 18 119/80 98 02/25/17 07:46 02/25/17 07:46 02/25/17 07:46 02/25/17 07:46 02/25/17 07:46 A&Ox3, EOMI, CRUMP, somewhat shuffled gait HRR, S1S2, no murmur noted LS clear bilat. with even, non-labored respirations Laboratory Results - last 24 hr 02/25/17 02/25/17 02/25/17 05:43 05:43 05:43 WBC 5.2 RBC 2.91 L Hgb 8.8 L Hct 26 L MCV 91 MCH 30 MCHC 33 RDW 18 H Plt Count 310 MPV 7 L Neut % (Auto) 66.7 Lymph % (Auto) 13.6 L [place] % (Auto) 15.3 H Eos % (Auto) 3.9 Baso % (Auto) 0.5 Absolute Neuts (auto) 3.5 Absolute Lymphs (auto) 0.7 L Absolute Monos (auto) 0.8 Absolute Eos (auto) 0.2 Absolute Basos (auto) 0 Absolute Nucleated RBC 0.05 Nucleated RBC % 0.9 Sodium 138 Potassium 3.6 Chloride 103 Carbon Dioxide 31 Anion Gap 4 BUN 11 Creatinine 0.72 Est GFR ( Amer) 100.0 Est GFR (Non-Af Amer) 77.7 BUN/Creatinine Ratio 15.3 Glucose 112 H Calcium 8.5 L Total Bilirubin 0.50 AST 12 L ALT 10 Alkaline Phosphatase 92 Total Protein 5.6 L Albumin 2.8 L Globulin 2.8 Albumin/Globulin Ratio 1.0 CA 125 Antigen 34.1 Assessment: []81 yo female with ovarian cancer felt to be locally advance but with questionable lung nodules, she is now s/p C2 Carbo/Taxol with excellent serological response and per CT of pelvis notable response in pelvic lesion. Admitted to hospital with severe pain likely r/t L3 compression fracture limiting patients ability to move, however with cont.'d issues and poor mobility we will obtain MRI to eval. further. Plan: []1. MRI LS today 2. Enc.'d use of tramadol, add Ibuprofen 400 mg TID while plt. are good. 3. OOB and PT enc.'d, pt. agreeable 4. Stop IV fluids today and follow labs in AM, enc.'d PO intake
[2017-02-25] MEDS: Ibuprofen TAB* 400 MG PO SCH ×2 (12:26→17:30)
[2017-02-25] MEDS ORDERED: Gadoteridol* (CONTRAST) 279.3 MG/ML 10 ML IV ONE (15:10)
--- NOTE | 2017-02-25 16:05 | RAD ---
Indication: Back pain with ovarian cancer. Prior compression fracture. Image sequences: Sagittal T1, T2, STIR, axial T1 and T2-weighted images of lumbar spine were obtained. Coronal and sagittal reconstructed images were obtained. Compression fracture of L3 is noted. This appears to be progressive when compared to previous exam of February 17, 2017 with now 50-75% compression. There is a retropulsed fragment noted. This encroaches the thecal sac with approximately decreased 50% diameter of the thecal sac. The postcontrast images demonstrates mild enhancement of the vertebral body including the retropulsed fragment. The cortical margins appear to be intact. Retropulsed fragment. No focal epidural mass is noted. No other areas of signal abnormality or enhancement is noted. No focal protrusion is noted at L5-S1, L4-L5, L3-L4 or L1-L2. The remainder of the vertebra demonstrates no evidence of abnormal signal. IMPRESSION: COMPRESSION FRACTURE OF APPROXIMATELY 50-75% OF L3 WHICH IS PROGRESSIVE SINCE PRIOR RADIOGRAPHS. THERE IS A RETROPULSED FRAGMENT WHICH APPEARS TO ENCROACH UPON THE THECAL SAC TO APPROXIMATELY 50%. NO FORAMINAL STENOSIS IS NOTED. THERE IS MILD ENHANCEMENT OF THE L3 VERTEBRA. IT WOULD BE DIFFICULT TO DIFFERENTIATE BETWEEN A BENIGN OSTEOPOROTIC COMPRESSION FRACTURE VERSUS A METASTATIC COMPRESSION FRACTURE. HOWEVER GIVEN THE INTACT CORTEX OF THE RETROPULSED FRAGMENT WELL A LACK OF ANY OTHER METASTATIC LESIONS IN THE SPINE WOULD FAVOR AN OSTEOPOROTIC COMPRESSION FRACTURE.
[2017-02-25] MEDS: PTO: Umeclidin/Vilant 62.5 MDI 62.5/25 mcg 14 INH ELLIPTA DEVICE INH SCH (17:06)
[2017-02-26] MEDS: Heparin VIAL(*) 5000 UNITS/ML VIAL (FIVE THOUSAND) SUBCUT SCH ×3 (07:12→22:21)
[2017-02-26] MEDS: Calcium/Vitamin D TAB 250/125* TAB PO SCH (07:39)
[2017-02-26] MEDS: Ferrous Sulfate TAB* 325 MG PO SCH (07:40)
[2017-02-26] MEDS: Omeprazole CAP* 20 MG PO SCH (07:40)
[2017-02-26] MEDS: Furosemide TAB* 20 MG PO SCH (07:40)
[2017-02-26] MEDS: Potassium Chlor TAB* 10 MEQ TAB.ER PO SCH (07:40)
[2017-02-26] MEDS: Ibuprofen TAB* 400 MG PO SCH ×3 (07:40→16:17)
[2017-02-26] MEDS: Cholecalciferol TAB* 1000 UNITS PO SCH (07:40)
[2017-02-26] MEDS: Atenolol TAB* 25 MG PO SCH (07:40)
[2017-02-26] MEDS: Nystatin TOP POWDER* 15 GM BTL TOPICAL SCH ×3 (07:43→22:23)
[2017-02-26] MEDS: traMADol TAB* 50 MG PO PRN (09:18)
--- NOTE | 2017-02-26 10:12 | PN ---
Progress Note - Progress Note Date of Service: 02/26/17 SOAP: Subjective: []Feeling good today. Had some upper back pain this morning but is gone now. Tramadol works well for lower back pain while at rest and is getting OOB. Still painful to get up and moving. Doing better with PT and nursing. MRI reveals 50-75% compression fx. @ L3 with retropulsion. Has bed offer @ [facility]. Nursing concerned about redness on buttocks, per report is blanchable but notably irritated. Has air-mattress and barrier cream, rare incontinence. Medications: Acetaminophen (Tylenol Tab*) 650 mg PO Q4H PRN PRN Reason: FEVER/PAIN Last Admin: 02/25/17 10:39 Dose: 650 mg Albuterol (Ventolin Hfa Inhaler*) 2 puff INH Q4H PRN PRN Reason: SOB/WHEEZING Atenolol (Tenormin Tab*) 25 mg PO QAM [facility] Last Admin: 02/26/17 07:40 Dose: 25 mg Benzonatate (Tessalon Cap*) 100 mg PO BID PRN PRN Reason: COUGH Calcium/Vitamin D (Oscal D Tab 250/125*) 2 tab PO DAILY [facility] Last Admin: 02/26/17 07:39 Dose: 2 tab Chlorpheniramine Maleate (Chlortrimeton Tab*) 4 mg PO QAM PRN PRN Reason: Allergy Symptoms Cholecalciferol (Vitamin D Tab*) 1,000 units PO DAILY [facility] Last Admin: 02/26/17 07:40 Dose: 1,000 units Ferrous Sulfate (Ferrous Sulfate Tab*) 325 mg PO DAILY [facility] Last Admin: 02/26/17 07:40 Dose: 325 mg Furosemide (Lasix Tab*) 20 mg PO QAM [facility] Last Admin: 02/26/17 07:40 Dose: 20 mg Heparin Sodium (Porcine) (Heparin Vial(*)) 5,000 units SUBCUT Q8HR [facility] Last Admin: 02/26/17 07:12 Dose: 5,000 units Heparin Sodium (Porcine) (Heparin Flush Port ([place])) 5 ml FLUSH DAILY [facility] PRN Reason: Protocol Last Admin: 02/26/17 07:44 Dose: 5 ml Ibuprofen (Motrin Tab*) 400 mg PO TID [facility] Last Admin: 02/26/17 07:40 Dose: 400 mg Nystatin (Nystatin Top Powder*) 1 applic TOPICAL TID [facility] Last Admin: 02/26/17 07:43 Dose: 1 applic Omeprazole (Prilosec Cap*) 20 mg PO QAM [facility] Last Admin: 02/26/17 07:40 Dose: 20 mg Ondansetron HCl (Zofran Inj*) 4 mg IV Q4H PRN PRN Reason: NAUSEA Potassium Chloride (Klor Con Er Tab*) 10 meq PO DAILY [facility] Last Admin: 02/26/17 07:40 Dose: 10 meq Tramadol HCl (Ultram*) 50 mg PO Q6H PRN PRN Reason: PAIN Last Admin: 02/26/17 09:18 Dose: 50 mg Triamcinolone Acetonide (Triamcinolone 0.025% Oint *) 1 applic TOPICAL DAILY PRN PRN Reason: ITCHY SKIN Umeclidinium/Vilanterol (Anoro 62.5/25 Ellipta Device (Nf)) 1 inh INH QPM [facility] Last Admin: 02/25/17 17:06 Dose: Not Given Objective: [] Vital Signs Temp Pulse Resp BP Pulse Ox 97.7 F 80 16 157/62 92 02/26/17 07:32 02/26/17 07:32 02/26/17 09:18 02/26/17 07:32 02/26/17 07:32 A&Ox3, EOMI, neuro grossly non-focal HRR, S1S2, no murmur noted LS clear bilat., no crackles but with rare cough noted +BS, abd. soft and non-tender L3 area on spine very tender to palpation, spine otherwise non-tender Assessment: []81 yo female with ovarian cancer currently admitted d/t severe back pain following a fall and found to have severe L3 compression fracture. Pain improving with consistent Tramadol use and working with PT to improve mobility. Plan: []1. Compression fracture: cont. pain control with Tramadol and Ibuprofen. Consult Dr. Madrid for consideration of surgery. Question of biphosphonate or calcitonin on d/c. 2. Ovarian Cancer: serological response and goal of giving C3 either tomorrow ( dependent on above consult) or early next week. 3. [place]: cont. current nursing care and will request wound care consult to consider further barriers as she is certainly high risk for pressure/sheer. Disposition: will d/c to [facility] however dependent on interventions.
--- NOTE | 2017-02-26 14:06 | CONSULT ---
Consult Consult: Neurosurgery consult Date of consult: 02/26/17 Date of admission: 02/22/17 Reason for consult: Compression fracture L Referring provider: Yelena Wilson NP HPI: This is an 81 year old female with past medical history significant for ovarian cancer diagnosed in 09/2016 and s/p two cycles of chemo, HTN, right breast cancer s/p lumpectomy and radiation, and COPD who [place] [facility] [place]17[place]17 after falling during the night. She states that on Thursday02/16/17 she was getting up during the night to get a bottle of water out of the refrigerator when all of the sudden she lost her balance and fell backward, landing on her back. She called for her sister and her niece who were visiting. She was eventually able to get up to a chair with assistance. She decided to present to the ED for evaluation because she was experiencing severe back pain. On 02/17/17, xray of the lumbar spine showed compression fracture of L3. Per the patient, she was discharged home with recommendation of heat or ice application and ibuprofen. She has been at her home with her daughters caring for her since discharge from the ED. However, she has had a difficult time getting around and ambulating independently secondary to back pain and lower extremity weakness. She was also complaining of pain radiating into the right hip and anterior thigh. Her daughters encouraged her to return to the ED for further evaluation. Currently, she is not experiencing pain in the low back or right anterior thigh. She describes that the pain occurs when she stands or walks. She also reports right lower extremity weakness with ascending the three stairs into her home since returning from the ED. She denies numbness or tingling in the RLE. She denies numbness, tingling, weakness or pain in the LLE. She denies numbness , tingling and pain into the groin. She has not had episodes of bowel or bladder incontinence with the exception of baseline stress incontinence. She denies numbness or pain around the abdomen or chest. Denies chest pain, difficulty breathing, headache, nausea and vomiting. Past medical history: 1. Ovarian cancer, s/p two cycles of chemo 2. Right breast cancer, s/p lumpectomy and radiation 3. HTN 4. COPD 5. Gastric ulcer Home medications: 1. Omeprazole CAP* [Prilosec CAP* 20 MG] 20 mg PO QAM 07/28/12 [History Confirmed 02/22/17] 2. Atenolol TAB* [Tenormin TAB* 25 MG] 25 mg PO QAM 08/31/12 [History Confirmed 02/22/17] 3. Triamcinolone 0.1% OINT* 1 admin TOPICAL DAILY PRN 08/31/12 [History Confirmed 02/22/17] 4. Losartan Potassium & Hydrochlo [Losartan Potassium/Hydroc 100-12.5 mg] 1 tab PO QAM 07/13/14 [History Confirmed 02/22/17] 5. Albuterol Sulfate [Proair Respiclick] 2 puff INH Q4H PRN 01/24/16 [History Confirmed 02/22/17] 6. Calcium Carbonate-Vitamin D [Calcium 600 + D 600-400 mg-Unit] 1 tab PO DAILY 01/24/16 [History Confirmed 02/22/17] 7. Cholecalciferol TAB* [Vitamin D TAB*] 1,000 unit PO DAILY 01/24/16 [History Confirmed 02/22/17] 8. Ferrous Sulfate [High Potency Iron] 65 mg PO DAILY 01/24/16 [History Confirmed 02/22/17] 9. Umeclidin/Vilant 62.5 MDI(NF) [ANORO 62.5/25 Ellipta DEVICE (NF)] 1 inh INH QPM 01/24/16 [History Confirmed 02/22/17] 10. Furosemide TAB* [Lasix TAB*] 20 mg PO QAM 02/06/16 [History Confirmed ] 11. Chlorpheniramine Maleate [Aller-Chlor] 4 mg PO QAM PRN 11/28/16 [History Confirmed 02/22/17] Allergies: 1. Penicillins 2. Vancomycin 3. Adhesive tape 4. Latex Social history: This patient lives at home alone in [place]. She is a former smoker and does not consume alcohol. ROS: Full ROS completed. Complains of cough for quite some time. Other pertinent finding stated in HPI and all others negative. Physical exam: Vital Signs: Temp Pulse Resp BP Pulse Ox 97.8 F 66 18 153/48 94 02/26/17 11:24 02/26/17 11:24 02/26/17 11:24 02/26/17 11:24 02/26/17 11:24 General: Alert and oriented. No distress. HEENT: Head is normocephalic and atraumatic. Scalp is dry. PERRL, EOMI, sclerae anicteric. Gross hearing intact. Moist mucus membranes. Neck: Supple, symmetric and nontender. CV: Radial pulses 2+ and equal. Lungs: Breathing is nonlabored. Slight cough. Lungs are clear. Abdomen: The abdomen is rounded. Normoactive bowel sounds, Neuro: Speech is clear. CN II-XII intact. Upper extremity strength: 5/5 bilaterally, facility maintenance manager strength 5/5. Lower extremity strength: Right hip flexor 4/5, left 5/5; otherwise 5/5 in right and left lower extremities. Sensation intact throughout. Extremities: No cyanosis. Bilateral lower extremity edema. Skin of bilateral lower extremities erythematous and dry. Imagin. Xray of the lumbar spine on 02/17/17 shows L3 compression fracture. 2. MRI of the lumbar spine on 02/25/17 shows worsening of L3 fracture with retropulsion. Assessment: This is an 81 year old female with multiple medical conditions who presented to the [facility] [place] for a second time with complaint of severe low back pain. She was found to have significantly worse L3 fracture on 02/25/17 compared to previous study on 02/17/17. She was admitted for pain management. Pain is now well controlled except for getting out of bed and ambulating. Mild right hip flexor weakness and right anterior thigh pain. We discussed wearing a brace for comfort when out of bed. This case was discussed with Dr. Madrid. Lumbar spine surgery not indicated at this time. Plan: 1. TLSO brace when out of bed. 2. Continue pain management.
[2017-02-26] MEDS: PTO: Umeclidin/Vilant 62.5 MDI 62.5/25 mcg 14 INH ELLIPTA DEVICE INH SCH (16:11)
[2017-02-27] MEDS: traMADol TAB* 50 MG PO PRN (01:47)
[2017-02-27] MEDS: Acetaminophen TAB* 325 MG PO PRN (06:17)
[2017-02-27] MEDS: Heparin VIAL(*) 5000 UNITS/ML VIAL (FIVE THOUSAND) SUBCUT SCH ×3 (06:19→20:40)
[2017-02-27 07:42] LABS: Hematocrit 28 % (35-47); Hemoglobin 9.2 g/dl (12.0-16.0); Mean Corpuscular HGB Conc 33 g/dl (31-36); Mean Corpuscular Hemoglobin 30 pg (27-31); Mean Corpuscular Volume 92 fL (80-97); Mean Platelet Volume 8 um3 (7.4-10.4); Red Blood Count 3.04 10^6/ul (4.0-5.4); Red Cell Distribution Width 19 % (10.5-15); White Blood Count 5.9 10^3/ul (3.5-10.8)
[2017-02-27 07:53] LABS: BUN/Creatinine Ratio 16.4 (8-20); Calcium 8.8 mg/dL (8.6-10.3); EGFR African American 98.4 (>60); EGFR Non-African American 76.5 (>60); Potassium 3.7 mmol/L (3.5-5.0)
[2017-02-27] MEDS: Omeprazole CAP* 20 MG PO SCH (07:54)
[2017-02-27] MEDS: Atenolol TAB* 25 MG PO SCH (07:55)
[2017-02-27] MEDS: Cholecalciferol TAB* 1000 UNITS PO SCH (07:55)
[2017-02-27] MEDS: Ferrous Sulfate TAB* 325 MG PO SCH (07:55)
[2017-02-27] MEDS: Calcium/Vitamin D TAB 250/125* TAB PO SCH (07:55)
[2017-02-27] MEDS: Ibuprofen TAB* 400 MG PO SCH ×3 (07:56→16:43)
[2017-02-27] MEDS: Furosemide TAB* 20 MG PO SCH (07:57)
[2017-02-27] MEDS: Nystatin TOP POWDER* 15 GM BTL TOPICAL SCH ×3 (07:58→20:40)
[2017-02-27] MEDS: Potassium Chlor TAB* 10 MEQ TAB.ER PO SCH (07:58)
[2017-02-27] MEDS ORDERED: Tramadol ER(NF) 100 MG TAB.ER PO PRN (09:54)
--- NOTE | 2017-02-27 09:54 | PN ---
Progress Note - Progress Note Date of Service: 02/27/17 SOAP: Subjective: []Still in pain. Working with PT and did get up but not moving otherwise. Cannot sit up in bed. Has some SOB today. Taking Tramadol and says that works pretty well. Eating. No fevers. No focal numbness or weakness in LE. Acetaminophen (Tylenol Tab*) 650 mg PO Q4H PRN PRN Reason: FEVER/PAIN Last Admin: 02/27/17 06:17 Dose: 650 mg Albuterol (Ventolin Hfa Inhaler*) 2 puff INH Q4H PRN PRN Reason: SOB/WHEEZING Last Admin: 02/26/17 22:16 Dose: 2 puff Atenolol (Tenormin Tab*) 25 mg PO QAM [facility] Last Admin: 02/27/17 07:55 Dose: 25 mg Benzonatate (Tessalon Cap*) 100 mg PO BID PRN PRN Reason: COUGH Calcium/Vitamin D (Oscal D Tab 250/125*) 2 tab PO DAILY [facility] Last Admin: 02/27/17 07:55 Dose: 2 tab Chlorpheniramine Maleate (Chlortrimeton Tab*) 4 mg PO QAM PRN PRN Reason: Allergy Symptoms Cholecalciferol (Vitamin D Tab*) 1,000 units PO DAILY [facility] Last Admin: 02/27/17 07:55 Dose: 1,000 units Ferrous Sulfate (Ferrous Sulfate Tab*) 325 mg PO DAILY [facility] Last Admin: 02/27/17 07:55 Dose: 325 mg Furosemide (Lasix Tab*) 20 mg PO QAM [facility] Last Admin: 02/27/17 07:57 Dose: 20 mg Heparin Sodium (Porcine) (Heparin Vial(*)) 5,000 units SUBCUT Q8HR [facility] Last Admin: 02/27/17 06:19 Dose: 5,000 units Heparin Sodium (Porcine) (Heparin Flush Port (Ivad)) 5 ml FLUSH DAILY [facility] PRN Reason: Protocol Last Admin: 02/27/17 06:30 Dose: 5 ml Ibuprofen (Motrin Tab*) 400 mg PO TID AC [facility] Last Admin: 02/27/17 07:56 Dose: 400 mg Nystatin (Nystatin Top Powder*) 1 applic TOPICAL TID [facility] Last Admin: 02/27/17 07:58 Dose: 1 applic Omeprazole (Prilosec Cap*) 20 mg PO QAM [facility] Last Admin: 02/27/17 07:54 Dose: 20 mg Ondansetron HCl (Zofran Inj*) 4 mg IV Q4H PRN PRN Reason: NAUSEA Potassium Chloride (Klor Con Er Tab*) 10 meq PO DAILY [facility] Last Admin: 02/27/17 07:58 Dose: 10 meq Tramadol HCl (Ultram*) 50 mg PO Q6H PRN PRN Reason: PAIN Last Admin: 02/27/17 01:47 Dose: 50 mg Triamcinolone Acetonide (Triamcinolone 0.025% Oint *) 1 applic TOPICAL DAILY PRN PRN Reason: ITCHY SKIN Umeclidinium/Vilanterol (Anoro 62.5/25 Ellipta Device (Nf)) 1 inh INH QPM [facility] Last Admin: 02/26/17 16:11 Dose: Not Given Objective: [] Vital Signs Temp Pulse Resp BP Pulse Ox 98.0 F 85 18 162/56 93 02/27/17 07:43 02/27/17 07:43 02/27/17 08:00 02/27/17 07:43 02/27/17 07:43 A&Ox3, EOMI, neuro grossly non-focal HRR, S1S2, no murmur noted Crackles at base today. Moderate SOB. +BS, abd. soft and non-tender Some tenderness lower spine, grade 1 ulcer. MRI reviewed with Dr. Herrera, mild nerve root compression, cord not compromised. Assessment: []81 yo female with ovarian cancer currently admitted d/t severe back pain following a fall and found to have severe L3 compression fracture. Pain improving with consistent Tramadol use and working with PT to improve mobility. Due for chemotherapy today. Plan: []1. Compression fracture: I expect recovery to be slow. She has continued pain but did walk with PT. - Encourage up in chair for all meals. - Continue PT - Will add long acting Tramadol 100 mg per day, will give 300 mg max per day. - Will likley need placement. Will discuss with discharge planning. [place] [facility]. 2. Ovarian Cancer. Serologic response and will re-check CT scan. Discuss case with DR. Whitfield on Thursday for senior living plan. 3. Skin ulcer risk. Wound care consult sent. 4. SOB. Will give Lasix 20 mg IV x 1 today and re-check CXR 5. Anemia. Stop oral iron. Check Iron and B12.
[2017-02-27] MEDS ORDERED: Furosemide IV* 10 MG/ML 2 ML VIAL (20 MG) IV ONE (09:55)
--- NOTE | 2017-02-27 12:31 | RAD ---
INDICATION: Shortness of breath. COMPARISON: Comparison is made with prior chest x-ray study from January 30, 2017. TECHNIQUE: AP and lateral views of the chest were obtained. FINDINGS: The heart is mildly enlarged and unchanged from the prior exam. There is a power port central venous catheter present on the right side. The lungs are hyperinflated and with flattening of the diaphragms consistent with chronic obstructive pulmonary disease. There is a new small patchy infiltrate at the right lung base. No pleural effusion is seen. IMPRESSION: 1. NEW SMALL RIGHT BASILAR INFILTRATE. 2. COPD.
[2017-02-27] MEDS: traMADol TAB* 50 MG PO SCH ×2 (13:52→20:43)
[2017-02-27] MEDS: PTO: Umeclidin/Vilant 62.5 MDI 62.5/25 mcg 14 INH ELLIPTA DEVICE INH SCH (17:43)
[2017-02-28] MEDS: traMADol TAB* 50 MG PO SCH ×4 (03:02→21:47)
[2017-02-28] MEDS: Heparin VIAL(*) 5000 UNITS/ML VIAL (FIVE THOUSAND) SUBCUT SCH ×3 (06:09→21:47)
[2017-02-28] MEDS: Ibuprofen TAB* 400 MG PO SCH ×3 (06:09→16:59)
[2017-02-28 06:29] LABS: Hematocrit 27 % (35-47); Hemoglobin 8.9 g/dl (12.0-16.0); Mean Corpuscular HGB Conc 33 g/dl (31-36); Mean Corpuscular Hemoglobin 31 pg (27-31); Mean Corpuscular Volume 92 fL (80-97); Mean Platelet Volume 7 um3 (7.4-10.4); Red Cell Distribution Width 20 % (10.5-15); White Blood Count 6.2 10^3/ul (3.5-10.8)
[2017-02-28 06:48] LABS: Albumin 2.9 g/dL (3.2-5.2); BUN/Creatinine Ratio 16.9 (8-20); Calcium 8.5 mg/dL (8.6-10.3); EGFR African American 84.9 (>60); Magnesium 1.2 mg/dL (1.9-2.7); Potassium 3.7 mmol/L (3.5-5.0); Total Bilirubin 0.5 mg/dL (0.2-1.0); Total Protein 5.9 g/dL (6.4-8.9)
[2017-02-28] MEDS: Calcium/Vitamin D TAB 250/125* TAB PO SCH (09:17)
[2017-02-28] MEDS: Atenolol TAB* 25 MG PO SCH (09:17)
[2017-02-28] MEDS: Cholecalciferol TAB* 1000 UNITS PO SCH (09:17)
[2017-02-28] MEDS: Furosemide TAB* 20 MG PO SCH (09:17)
[2017-02-28] MEDS: Omeprazole CAP* 20 MG PO SCH (09:17)
[2017-02-28] MEDS: Potassium Chlor TAB* 10 MEQ TAB.ER PO SCH (09:17)
[2017-02-28] MEDS: Nystatin TOP POWDER* 15 GM BTL TOPICAL SCH ×3 (09:19→21:51)
[2017-02-28] MEDS ORDERED: Cyanocobalamin INJ * 1,000 MCG/ML VIAL 1 ML VIAL IM ONE (09:51)
--- NOTE | 2017-02-28 09:51 | PN ---
Progress Note - Progress Note Date of Service: 02/28/17 SOAP: Subjective: [] Did a little better yesterday. Did get up. Walked to chair but not more then that. Started long acting pain medication and helped some. Eating well. Acetaminophen (Tylenol Tab*) 650 mg PO Q4H PRN PRN Reason: FEVER/PAIN Last Admin: 02/27/17 06:17 Dose: 650 mg Albuterol (Ventolin Hfa Inhaler*) 2 puff INH Q4H PRN PRN Reason: SOB/WHEEZING Last Admin: 02/26/17 22:16 Dose: 2 puff Atenolol (Tenormin Tab*) 25 mg PO QAM [facility] Last Admin: 02/28/17 09:17 Dose: 25 mg Benzonatate (Tessalon Cap*) 100 mg PO BID PRN PRN Reason: COUGH Calcium/Vitamin D (Oscal D Tab 250/125*) 2 tab PO DAILY [facility] Last Admin: 02/28/17 09:17 Dose: 2 tab Chlorpheniramine Maleate (Chlortrimeton Tab*) 4 mg PO QAM PRN PRN Reason: Allergy Symptoms Cholecalciferol (Vitamin D Tab*) 1,000 units PO DAILY [facility] Last Admin: 02/28/17 09:17 Dose: 1,000 units Furosemide (Lasix Tab*) 20 mg PO QAM [facility] Last Admin: 02/28/17 09:17 Dose: 20 mg Heparin Sodium (Porcine) (Heparin Vial(*)) 5,000 units SUBCUT Q8HR [facility] Last Admin: 02/28/17 06:09 Dose: 5,000 units Heparin Sodium (Porcine) (Heparin Flush Port (Ivad)) 5 ml FLUSH DAILY [facility] PRN Reason: Protocol Last Admin: 02/27/17 12:05 Dose: 5 ml Ibuprofen (Motrin Tab*) 400 mg PO TID AC [facility] Last Admin: 02/28/17 06:09 Dose: 400 mg Nystatin (Nystatin Top Powder*) 1 applic TOPICAL TID [facility] Last Admin: 02/28/17 09:19 Dose: 1 applic Omeprazole (Prilosec Cap*) 20 mg PO QAM [facility] Last Admin: 02/28/17 09:17 Dose: 20 mg Ondansetron HCl (Zofran Inj*) 4 mg IV Q4H PRN PRN Reason: NAUSEA Potassium Chloride (Klor Con Er Tab*) 10 meq PO DAILY [facility] Last Admin: 02/28/17 09:17 Dose: 10 meq Tramadol HCl (Ultram*) 50 mg PO Q6H [facility] Last Admin: 02/28/17 09:18 Dose: 50 mg Triamcinolone Acetonide (Triamcinolone 0.025% Oint *) 1 applic TOPICAL DAILY PRN PRN Reason: ITCHY SKIN Umeclidinium/Vilanterol (Anoro 62.5/25 Ellipta Device (Nf)) 1 inh INH QPM [facility] Last Admin: 02/27/17 17:43 Dose: 1 puff Objective: [] Vital Signs Temp Pulse Resp BP Pulse Ox 97.6 F 86 18 175/77 92 02/28/17 07:41 02/28/17 07:41 02/28/17 09:18 02/28/17 07:41 02/28/17 07:41 A&Ox3, EOMI, neuro grossly non-focal HRR, S1S2, no murmur noted Crackles at base today. Moderate SOB. +BS, abd. soft and non-tender Some tenderness lower spine, grade 1 ulcer. Mg 1.2 Assessment: []81 yo female with ovarian cancer currently admitted d/t severe back pain following a fall and found to have severe L3 compression fracture. Pain improving with consistent Tramadol use and working with PT to improve mobility. Plan: []1. Compression fracture: I expect recovery to be slow. She has continued pain but did walk with PT. - Encourage up in chair for all meals. - Continue PT - Continue long acting Tramadol 100 mg p - Will [facility] need placement. Follow over weekend and if not improving significantly, [place]. 2. Ovarian Cancer. Serologic response, CT with slight improvement. Discuss case with DR. Whitfield on Thursday for bed bug exterminator plan. 3. Skin ulcer risk. Wound care consult sent. 4. SOB. Better today after Lasix and CXR was stable. Continue Lasix daily. 5. Anemia. Iron stable, low B12. Will start B12 and follow. 6. FEN. Replete Mg 3 gm.
--- NOTE | 2017-02-28 10:13 | PN ---
Progress Note - Progress Note Date of Service: 02/28/17 SOAP: Subjective: []Continues to complain of pain Has been fitted for TLSO brace Should arrive Mon Also complains of right thigh pain when up Objective: []Neuro intact Assessment: []Stable Plan: []Again discussed potential role for surgery if she is not able to tolerate activity in brace She is adamant about not wanting surgery Will follow with you
[2017-02-28] MEDS: Triamcinolone 0.025% OINT * 15 GM TUBE TOPICAL PRN (17:03)
[2017-02-28] MEDS: PTO: Umeclidin/Vilant 62.5 MDI 62.5/25 mcg 14 INH ELLIPTA DEVICE INH SCH (21:46)
[2017-03-01] MEDS: traMADol TAB* 50 MG PO SCH ×4 (01:26→19:35)
[2017-03-01] MEDS: Acetaminophen TAB* 325 MG PO PRN (03:38)
[2017-03-01] MEDS: Ibuprofen TAB* 400 MG PO SCH ×3 (06:29→17:30)
[2017-03-01] MEDS: Heparin VIAL(*) 5000 UNITS/ML VIAL (FIVE THOUSAND) SUBCUT SCH ×3 (06:29→21:20)
[2017-03-01 07:39] LABS: Hematocrit 31 % (35-47); Mean Corpuscular HGB Conc 33 g/dl (31-36); Mean Corpuscular Hemoglobin 30 pg (27-31); Mean Corpuscular Volume 92 fL (80-97); Mean Platelet Volume 7 um3 (7.4-10.4); Red Blood Count 3.33 10^6/ul (4.0-5.4); Red Cell Distribution Width 20 % (10.5-15); White Blood Count 7.3 10^3/ul (3.5-10.8)
[2017-03-01 07:41] LABS: Add Diff/Slide Review? Slide Review Added; Comments Flag Yes
[2017-03-01 07:55] LABS: Albumin 2.4 g/dL (3.2-5.2); BUN/Creatinine Ratio 17.5 (8-20); Calcium 6.8 mg/dL (8.6-10.3); EGFR African American 130.9 (>60); EGFR Non-African American 101.8 (>60); Globulin 2.5 g/dL (2-4); Magnesium 1.4 mg/dL (1.9-2.7); Potassium 3.1 mmol/L (3.5-5.0); Total Bilirubin 0.5 mg/dL (0.2-1.0); Total Protein 4.9 g/dL (6.4-8.9)
[2017-03-01] MEDS ORDERED: Potassium Chlor TAB* 20 MEQ TAB.ER PO ONE (08:05)
[2017-03-01 08:06] LABS: Eosinophils % 1 % (0-6); Immature Granulocytes 5 % (0-9); Myelocytes % 2 % (0-1); Neutrophil % 77 % (38-83)
[2017-03-01 08:07] LABS: RBC Morphology Normal (Normal)
[2017-03-01] MEDS ORDERED: Magnesium Sulfate 2 GM IV* 2 GM/50 ML BAG IVPB ONE (08:16)
--- NOTE | 2017-03-01 08:22 | PN ---
Subjective Date of Service: 03/01/17 Interval History: Did not sleep well overnight 2/2 pain but now indicates she is pain free denies cough and notes her SOB is resolved Still interested in [facility] placement Has not received TLSO brace Objective Active Medications: Acetaminophen (Tylenol Tab*) 650 mg PO Q4H PRN PRN Reason: FEVER/PAIN Last Admin: 03/01/17 03:38 Dose: 650 mg Albuterol (Ventolin Hfa Inhaler*) 2 puff INH Q4H PRN PRN Reason: SOB/WHEEZING Last Admin: 02/26/17 22:16 Dose: 2 puff Atenolol (Tenormin Tab*) 25 mg PO QAM [facility] Last Admin: 02/28/17 09:17 Dose: 25 mg Benzonatate (Tessalon Cap*) 100 mg PO BID PRN PRN Reason: COUGH Calcium/Vitamin D (Oscal D Tab 250/125*) 2 tab PO DAILY [facility] Last Admin: 02/28/17 09:17 Dose: 2 tab Chlorpheniramine Maleate (Chlortrimeton Tab*) 4 mg PO QAM PRN PRN Reason: Allergy Symptoms Cholecalciferol (Vitamin D Tab*) 1,000 units PO DAILY [facility] Last Admin: 02/28/17 09:17 Dose: 1,000 units Docusate Sodium (Colace Cap*) 200 mg PO DAILY [facility] Furosemide (Lasix Tab*) 20 mg PO QAM [facility] Last Admin: 02/28/17 09:17 Dose: 20 mg Heparin Sodium (Porcine) (Heparin Vial(*)) 5,000 units SUBCUT Q8HR [facility] Last Admin: 03/01/17 06:29 Dose: 5,000 units Heparin Sodium (Porcine) (Heparin Flush Port (Ivad)) 5 ml FLUSH DAILY [facility] PRN Reason: Protocol Last Admin: 02/28/17 09:46 Dose: 5 ml Magnesium Sulfate (Magnesium Sulfate 2 Gm Iv*) 2 gm in 50 mls @ 50 mls/hr IVPB ONCE ONE Stop: 03/01/17 09:15 Ibuprofen (Motrin Tab*) 400 mg PO TID AC [facility] Last Admin: 03/01/17 06:29 Dose: 400 mg Nystatin (Nystatin Top Powder*) 1 applic TOPICAL TID [facility] Last Admin: 02/28/17 21:51 Dose: 1 applic Omeprazole (Prilosec Cap*) 20 mg PO QAM [facility] Last Admin: 02/28/17 09:17 Dose: 20 mg Ondansetron HCl (Zofran Inj*) 4 mg IV Q4H PRN PRN Reason: NAUSEA Potassium Chloride (Klor Con Er Tab*) 10 meq PO DAILY [facility] Last Admin: 02/28/17 09:17 Dose: 10 meq Senna (Senokot Tab*) 2 tab PO BEDTIME [facility] Tramadol HCl (Ultram*) 50 mg PO Q6H [facility] Last Admin: 03/01/17 01:26 Dose: 50 mg Triamcinolone Acetonide (Triamcinolone 0.025% Oint *) 1 applic TOPICAL DAILY PRN PRN Reason: ITCHY SKIN Last Admin: 02/28/17 17:03 Dose: 1 applic Umeclidinium/Vilanterol (Anoro 62.5/25 Ellipta Device (Nf)) 1 inh INH QPM [facility] Last Admin: 02/28/17 21:46 Dose: Not Given Vital Signs 02/28/17 02/28/17 02/28/17 09:18 11:18 11:32 Temperature Pulse Rate 69 Respiratory 18 18 15 Rate Blood Pressure 166/66 (mmHg) O2 Sat by Pulse 93 Oximetry 02/28/17 02/28/17 02/28/17 14:17 15:33 16:17 Temperature 97.5 F Pulse Rate 71 Respiratory 16 20 18 Rate Blood Pressure 149/60 (mmHg) O2 Sat by Pulse 92 Oximetry 02/28/17 02/28/17 02/28/17 19:38 20:00 21:47 Temperature 97.6 F Pulse Rate 73 Respiratory 20 20 18 Rate Blood Pressure 146/53 (mmHg) O2 Sat by Pulse 94 Oximetry 02/28/17 02/28/17 03/01/17 23:42 23:47 01:14 Temperature 97.6 F Pulse Rate 76 Respiratory 16 18 Rate Blood Pressure 158/57 (mmHg) O2 Sat by Pulse 98 98 Oximetry 03/01/17 03/01/17 03/01/17 01:26 03:26 03:28 Temperature 97.7 F Pulse Rate 45 Respiratory 18 18 18 Rate Blood Pressure 146/65 (mmHg) O2 Sat by Pulse 96 Oximetry 03/01/17 07:21 Temperature 97.0 F Pulse Rate 86 Respiratory 18 Rate Blood Pressure 154/63 (mmHg) O2 Sat by Pulse 91 Oximetry Appearance: sitting in chair, NAD Eyes: No Scleral Icterus, PERRLA Ears/Nose/Mouth/Throat: Clear Oropharnyx, Mucous Membranes Moist Neck: NL Appearance and Movements; NL JVP, Trachea Midline Respiratory: Symmetrical Chest Expansion and Respiratory Effort, - - b/l rales up 1/4 to apex Cardiovascular: RRR Abdominal: NL Sounds; No Tenderness; No Distention, No Hepatosplenomegaly Extremities: - - 1+ le edema Skin: - - b/l LE patchy erythema more confluent distally Neurological: Alert and Oriented x 3 Result Diagrams: 03/01/17 07:30 03/01/17 07:30 Additional Lab and Data: Lab Results 02/22/17 02/22/17 Range/Units 18:20 18:20 WBC 6.5 (3.5-10.8) 10^3/ul RBC 2.30 L (4.0-5.4) 10^6/ul Hgb 7.0 L (12.0-16.0) g/dl Hct 21 L (35-47) % MCV 91 (80-97) fL MCH 30 (27-31) pg MCHC 34 (31-36) g/dl RDW 20 H (10.5-15) % Plt Count 238 (150-450) 10^3/ul MPV 7 L (7.4-10.4) um3 Neut % (Auto) 74.5 (38-83) % Lymph % (Auto) 10.5 L (25-47) % [place] % (Auto) 13.1 H (1-9) % Eos % (Auto) 1.5 (0-6) % Baso % (Auto) 0.4 (0-2) % Absolute Neuts (auto) 4.9 (1.5-7.7) 10^3/ul Absolute Lymphs (auto) 0.7 L (1.0-4.8) 10^3/ul Absolute Monos (auto) 0.9 H (0-0.8) 10^3/ul Absolute Eos (auto) 0.1 (0-0.6) 10^3/ul Absolute Basos (auto) 0 (0-0.2) 10^3/ul Absolute Nucleated RBC 0.01 10^3/ul Nucleated RBC % 0.2 Sodium 131 L (133-145) mmol/L Potassium 2.9 L (3.5-5.0) mmol/L Chloride 91 L (101-111) mmol/L Carbon Dioxide 33 H (22-32) mmol/L Anion Gap 7 (2-11) mmol/L BUN 26 H (6-24) mg/dL Creatinine 1.06 H (0.51-0.95) mg/dL Est GFR ( Amer) 64.0 (>60) Est GFR (Non-Af Amer) 49.8 (>60) BUN/Creatinine Ratio 24.5 H (8-20) Glucose 111 H (70-100) mg/dL Calcium 8.8 (8.6-10.3) mg/dL Magnesium 1.5 L (1.9-2.7) mg/dL Total Bilirubin 0.50 (0.2-1.0) mg/dL AST 13 (13-39) U/L ALT 10 (7-52) U/L Alkaline Phosphatase 106 H (34-104) U/L C-Reactive Protein 62.42 H (< 5.00) mg/L Total Protein 6.2 L (6.4-8.9) g/dL Albumin 3.1 L (3.2-5.2) g/dL Globulin 3.1 (2-4) g/dL Albumin/Globulin Ratio 1.0 (1-3) Lipase 45 (11.0-82.0) U/L Microbiology and Other Data: Microbiology 02/22/17 23:25 Nasal Screen MRSA (PCR)(JOHANNA) - Final Nasal Mrsa Negative Assess/Plan/Problems-Billing Assessment: 81 yo F with ovarian cancer admitted with intractable pain thought 2/2 osteoporotic L3 fracture s/p fall - Patient Problems (1) Compression fracture Comment: NS following no surgery TLO brace pending delivery pain control adequate plan on placement in SNF (2) Ovarian cancer Comment: continued management per primary oncology team (3) Shortness of breath Comment: new small right basilar infiltrate 02/27 on CXR but improving with lasix favors mild acute decompensated diastolic heart failure exacerbation c/w lasix daily (4) Constipation Comment: last BM 02/26 start colcace and senna (5) Hypokalemia Comment: 40 KCl in addition to standing 10 meq daily replete magnesium (6) DVT prophylaxis Comment: HSQ
[2017-03-01] MEDS: Cholecalciferol TAB* 1000 UNITS PO SCH (09:02)
[2017-03-01] MEDS: Docusate CAP* 100 MG PO SCH (09:02)
[2017-03-01] MEDS: Atenolol TAB* 25 MG PO SCH (09:02)
[2017-03-01] MEDS: Calcium/Vitamin D TAB 250/125* TAB PO SCH (09:02)
[2017-03-01] MEDS: Potassium Chlor TAB* 10 MEQ TAB.ER PO SCH (09:03)
[2017-03-01] MEDS: Omeprazole CAP* 20 MG PO SCH (09:03)
[2017-03-01] MEDS: Furosemide TAB* 20 MG PO SCH (09:03)
[2017-03-01] MEDS: Nystatin TOP POWDER* 15 GM BTL TOPICAL SCH ×3 (09:04→19:36)
[2017-03-01] MEDS: Triamcinolone 0.025% OINT * 15 GM TUBE TOPICAL PRN (11:43)
[2017-03-01] MEDS: PTO: Umeclidin/Vilant 62.5 MDI 62.5/25 mcg 14 INH ELLIPTA DEVICE INH SCH (17:31)
[2017-03-01] MEDS: Senna TAB PO SCH (19:35)
[2017-03-02] MEDS: traMADol TAB* 50 MG PO SCH ×4 (01:38→21:05)
[2017-03-02] MEDS: Heparin VIAL(*) 5000 UNITS/ML VIAL (FIVE THOUSAND) SUBCUT SCH ×3 (06:31→21:05)
[2017-03-02] MEDS: Ibuprofen TAB* 400 MG PO SCH ×3 (07:44→17:20)
[2017-03-02] MEDS: Calcium/Vitamin D TAB 250/125* TAB PO SCH (07:45)
[2017-03-02] MEDS: Atenolol TAB* 25 MG PO SCH (07:46)
[2017-03-02] MEDS: Cholecalciferol TAB* 1000 UNITS PO SCH (07:46)
[2017-03-02] MEDS: Docusate CAP* 100 MG PO SCH (07:46)
[2017-03-02] MEDS: Potassium Chlor TAB* 10 MEQ TAB.ER PO SCH ×2 (07:46→08:55)
[2017-03-02] MEDS: Furosemide TAB* 20 MG PO SCH (07:47)
[2017-03-02] MEDS: Omeprazole CAP* 20 MG PO SCH (07:47)
[2017-03-02] MEDS: Nystatin TOP POWDER* 15 GM BTL TOPICAL SCH ×3 (07:49→21:06)
[2017-03-02] MEDS ORDERED: Potassium Chlor TAB* 20 MEQ TAB.ER PO ONE (09:00)
--- NOTE | 2017-03-02 09:59 | PN ---
Progress Note - Progress Note Date of Service: 03/02/17 SOAP: Subjective: []Pain still the issues. Maybe a little better. Tramadol works when she takes it. Up to bathroom but not walking otherwise. Back brace today. No fevers. eating well. Bowls moving. Acetaminophen (Tylenol Tab*) 650 mg PO Q4H PRN PRN Reason: FEVER/PAIN Last Admin: 03/01/17 03:38 Dose: 650 mg Albuterol (Ventolin Hfa Inhaler*) 2 puff INH Q4H PRN PRN Reason: SOB/WHEEZING Last Admin: 02/26/17 22:16 Dose: 2 puff Atenolol (Tenormin Tab*) 25 mg PO QAM [facility] Last Admin: 03/02/17 07:46 Dose: 25 mg Benzonatate (Tessalon Cap*) 100 mg PO BID PRN PRN Reason: COUGH Calcium/Vitamin D (Oscal D Tab 250/125*) 2 tab PO DAILY [facility] Last Admin: 03/02/17 07:45 Dose: 2 tab Chlorpheniramine Maleate (Chlortrimeton Tab*) 4 mg PO QAM PRN PRN Reason: Allergy Symptoms Cholecalciferol (Vitamin D Tab*) 1,000 units PO DAILY [facility] Last Admin: 03/02/17 07:46 Dose: 1,000 units Docusate Sodium (Colace Cap*) 200 mg PO DAILY [facility] [place] Last Admin: 03/02/17 07:46 Dose: 200 mg Furosemide (Lasix Tab*) 20 mg PO QAM [facility] [place] Last Admin: 03/02/17 07:47 Dose: 20 mg Heparin Sodium (Porcine) (Heparin Vial(*)) 5,000 units SUBCUT Q8HR [facility] [place] Last Admin: 03/02/17 06:31 Dose: 5,000 units Heparin Sodium (Porcine) (Heparin Flush Port (Ivad)) 5 ml FLUSH DAILY [facility] PRN Reason: Protocol Last Admin: 03/02/17 08:55 Dose: 5 ml Magnesium Sulfate 3 gm/ Sodium (Chloride) 106 mls @ 53 mls/hr IVPB ONCE ONE Stop: 03/02/17 10:22 Last Admin: 03/02/17 08:54 Dose: 53 mls/hr Ibuprofen (Motrin Tab*) 400 mg PO TID [facility] Last Admin: 03/02/17 07:44 Dose: 400 mg Nystatin (Nystatin Top Powder*) 1 applic TOPICAL TID [facility] Last Admin: 03/02/17 07:49 Dose: 1 applic Omeprazole (Prilosec Cap*) 20 mg PO QAM [facility] [place] Last Admin: 03/02/17 07:47 Dose: 20 mg Ondansetron HCl (Zofran Inj*) 4 mg IV Q4H PRN PRN Reason: NAUSEA Potassium Chloride (Klor Con Er Tab*) 20 meq PO DAILY [facility] Last Admin: 03/02/17 08:55 Dose: 20 meq Senna (Senokot Tab*) 2 tab PO BEDTIME [facility] [place] Last Admin: 03/01/17 19:35 Dose: 2 tab Tramadol HCl (Ultram*) 50 mg PO Q6H [facility] Last Admin: 03/02/17 07:44 Dose: 50 mg Triamcinolone Acetonide (Triamcinolone 0.025% Oint *) 1 applic TOPICAL DAILY PRN PRN Reason: ITCHY SKIN Last Admin: 03/01/17 11:43 Dose: 1 applic Umeclidinium/Vilanterol (Anoro 62.5/25 Ellipta Device (Nf)) 1 inh INH QPM [facility] [place] Last Admin: 03/01/17 17:31 Dose: 1 puff Objective: [] Vital Signs Temp Pulse Resp BP Pulse Ox 97.6 F 75 18 176/63 99 03/02/17 07:17 03/02/17 09:15 03/02/17 08:00 03/02/17 09:15 03/02/17 08:11 A&Ox3, EOMI, neuro grossly non-focal RRR, S1S2, no murmur noted CTA, no distress. +BS, abd. soft and non-tender Some tenderness lower spine, grade 1 ulcer. Assessment: []81 yo female with ovarian cancer currently admitted d/t severe back pain following a fall and found to have severe L3 compression fracture. Pain improving with consistent Tramadol use and working with PT to improve mobility. Plan: []1. Compression fracture: I expect recovery to be slow. She has continued pain but did walk with PT. - Encourage up in chair for all meals. - Brace today. - Re-start long acting Tramadol 100 mg qd - [place] tomorrow. 2. Ovarian Cancer. Serologic response, CT with slight improvement. Discussed with patient and daughter. Have not decided if she ultimately will be candidate for surgery. Has had response to chemotherapy but will be transient unless we move forward. At this time not a candidate for surgery. Will give cycle 3 of 3 Carbo/Taxol today. Follow up in 2-3 weeks and will discuss case with Dr. Whitfield at [place]. 3. Skin ulcer improved.. 4. HTN. Will add Lisinopril 10 mg po daily today. 5. Anemia. Iron stable, low B12. Will start B12 and follow. 6. FEN. Replete Mg 3 gm, increase K-dur to 20 mg and add Mg 800 mg po daily. Stop lasix.
[2017-03-02] MEDS ORDERED: Prochlorperazine TAB* 10 MG PO PRN (11:24)
[2017-03-02] MEDS ORDERED: Dexamethasone IV* 4 MG/ML 5 ML VIAL (20 MG) ONE (11:27)
[2017-03-02] MEDS ORDERED: diPHENhydraMINE IV* 50 MG/ML 1 ml VIAL (BENADRYL) ONE (11:27)
[2017-03-02] MEDS ORDERED: Famotidine IV* 10 MG/ML 2 ML (20 mg) ONE (11:27)
[2017-03-02] MEDS ORDERED: diPHENhydraMINE IV* 50 MG in NS 0.9% 50 ML* 50 ML IVPB ONE (11:30)
[2017-03-02] MEDS ORDERED: FAMOTIDINE IVPB ONE (12:00)
[2017-03-02] MEDS ORDERED: DEXAMETHASONE IVPB ONE (12:00)
[2017-03-02] MEDS ORDERED: NS 0.9% IVPB ONE ×3 (12:00→15:30)
[2017-03-02] MEDS: Ondansetron INJ* 2 MG/ML VIAL IV SCH ×2 (12:27→21:51)
[2017-03-02] MEDS ORDERED: PACLITAXEL IVPB ONE (12:30)
[2017-03-02] MEDS ORDERED: CARBOPLATIN IVPB ONE (15:30)
[2017-03-02] MEDS: Senna TAB PO SCH (21:06)
[2017-03-03] MEDS: traMADol TAB* 50 MG PO SCH ×3 (02:36→13:59)
[2017-03-03] MEDS: Ondansetron INJ* 2 MG/ML VIAL IV SCH (04:13)
[2017-03-03] MEDS: Heparin VIAL(*) 5000 UNITS/ML VIAL (FIVE THOUSAND) SUBCUT SCH ×2 (05:44→13:58)
[2017-03-03 07:29] LABS: Hematocrit 28 % (35-47); Hemoglobin 9.2 g/dl (12.0-16.0); Mean Corpuscular HGB Conc 33 g/dl (31-36); Mean Corpuscular Hemoglobin 31 pg (27-31); Mean Corpuscular Volume 93 fL (80-97); Mean Platelet Volume 7 um3 (7.4-10.4); Red Blood Count 2.98 10^6/ul (4.0-5.4); Red Cell Distribution Width 21 % (10.5-15); White Blood Count 6.2 10^3/ul (3.5-10.8)
[2017-03-03 07:41] LABS: Calcium 8.5 mg/dL (8.6-10.3); Total Bilirubin 0.4 mg/dL (0.2-1.0); Total Protein 5.9 g/dL (6.4-8.9)
[2017-03-03] MEDS ORDERED: Lisinopril TAB* 10 MG PO SCH (09:00)
[2017-03-03] MEDS: PTO: Umeclidin/Vilant 62.5 MDI 62.5/25 mcg 14 INH ELLIPTA DEVICE INH SCH (09:07)
[2017-03-03] MEDS: Atenolol TAB* 25 MG PO SCH (09:26)
[2017-03-03] MEDS: Omeprazole CAP* 20 MG PO SCH (09:26)
[2017-03-03] MEDS: Ibuprofen TAB* 400 MG PO SCH ×2 (09:26→13:47)
[2017-03-03 10:42] LABS: Albumin 3.2 g/dL (3.2-5.2); BUN/Creatinine Ratio 19.3 (8-20); EGFR African American 84.9 (>60); Globulin 2.7 g/dL (2-4)
--- NOTE | 2017-03-03 11:14 | DS ---
- Discharge Summary DISCHARGE SUMMARY Admission Date: 02/22/2017 Discharge Date: 03/03/2017 Discharge Diagnosis: 1. Compression fracture: L3 with retropulsion, worsening, cause of pain, present on admission 2. Ovarian Cancer: now s/p C3 Carboplatin and Paclitaxel, known serological response /p C2 3. COPD: stable, no change 4. HTN: stable, stopped diuretics, on REGINA-Inhibitor Discharge Medications: 1. Acetaminophen 650 mg PO q4 hrs PRN pain/fever 2. Benzonatate 100 mg PO BID PRN cough 3. Docusate Sodium 200 mg PO daily 4. Lisinopril 10 mg PO daily 5. Nystatin topical powder applied TID 6. Potassium Chloride 20 mEq PO daily 7. Prochlorperazine 10 mg PO q8hrs PRN nausea 8. Senna 2 tabs PO qHS 9. Tramadol ER 200 mg daily 10. Tramadol 50 mg PO q6hrs PRN pain 11. Omeprazole 20 mg PO qAM 12. Triamcinolone 0.1% topically PRN itchy skin 13. Atenolol 25 mg PO dailiy 14. Anoro 62.5/25 ellipta device 1 inh. qPM 15. Vitamin D 1,000 units PO daily 16. Calcium/Vit D 1 tab PO daily 17. Albuterol 2 puff inh q4hrs PRN SOB/Wheeze 18. Chlorpheniramine 4 mg PO qAM PRN allergies *STOP Losartan/Hydrochlorathiazide, iron, & Lasix Hospital Course: Please see admission note for full H&P, however briefly Mrs. López is well known to our service due to her recent diagnosis of locally advance ovarian cancer this spring on neoadjuvant Carboplatin and Paclitaxel. She presented to the ER on 02/22/17 d/t progressive pain following a fall on 02/16/17. On admission she received a pelvic CT that showed slight decrease in size of the known tumor with no evidence for hip fracture. On 02/24 a bone scan was ordered which was negative for malignant lytic lesion and fracture. Her pain remained severe with decreased mobility and an MRI of the lumbar spine ordered on 02/25/17 revealed a significant compression fracture @ L3 with approx. 50% vertebral height loss and retropulsion. Dr. Madrid of neuro surgery was consulted on 02/26 at which time it was felt surgery may be beneficial, however recommendation was not for surgery and a back brace was ordered. Further f/u by Dr. Madrid on 02/28 revealed the patient in fact did not want surgery. Upon recognition of the compression fracture severity Mrs. Barahona Tramadol was scheduled and she was given anti-inflammatory meds. Throughout her stay she has received PT with frequent OOB activities. Her pain at this time is controlled at rest, though cont.s to increase with activity. With underlying COPD Mrs. López has experienced some SOB though with no evidence for pneumonia on x-ray 02/27/17 and she has been encouraged to use the incentive spirometer. Since admission Mrs. López and her family have requested transition to sub-acute rehab with long term on discharge. While awaiting the back brace Mrs. López received her 3 rd dose of chemotherapy and tolerated this well. During her admission her BP meds were adjusted. At this time she is stable for d/c and will transition to a SNF for cont.d rehab. She will f/u with Dr. Christensen on 03/13 for labs and consideration of further tx. >40 min spent with >50% face to face counseling
[2017-03-03] MEDS: Docusate CAP* 100 MG PO SCH (11:15)
[2017-03-03] MEDS: Calcium/Vitamin D TAB 250/125* TAB PO SCH (11:15)
[2017-03-03] MEDS: Cholecalciferol TAB* 1000 UNITS PO SCH (11:16)
[2017-03-03] MEDS: Nystatin TOP POWDER* 15 GM BTL TOPICAL SCH ×2 (11:16→13:58)
[2017-03-03] MEDS: Potassium Chlor TAB* 10 MEQ TAB.ER PO SCH (11:17)
[2017-03-03 11:49] VITALS: BP 164/67
== END 2017-03-03 15:05 | DRG 551 ==
LOC: ED 16:02 → OBSVTOIN 21:37 → MED 21:37
PROVIDERS: ADMIT Internal Medicine; ATTEND Internal Medicine Hematology & Oncology
PROC: 30233N1 Transfusion of Nonautologous Red Blood Cells into Peripheral Vein, Percutaneous Approach (ICD-10-PCS; principal; 2017-02-23)
DX: S32.039A Unspecified fracture of third lumbar vertebra, initial encounter for closed fracture (principal); I50.33 Acute on chronic diastolic (congestive) heart failure; L89.319 Pressure ulcer of right buttock, unspecified stage; C79.51 Secondary malignant neoplasm of bone; D64.81 Anemia due to antineoplastic chemotherapy; L89.329 Pressure ulcer of left buttock, unspecified stage; E86.0 Dehydration; J44.9 Chronic obstructive pulmonary disease, unspecified; C56.9 Malignant neoplasm of unspecified ovary; I11.0 Hypertensive heart disease with heart failure; E78.5 Hyperlipidemia, unspecified; H26.9 Unspecified cataract; E87.6 Hypokalemia; K21.9 Gastro-esophageal reflux disease without esophagitis; E78.00 Pure hypercholesterolemia, unspecified; M19.012 Primary osteoarthritis, left shoulder; R40.2412 Glasgow coma scale score 13-15, at arrival to emergency department; I73.9 Peripheral vascular disease, unspecified; W18.39XA Other fall on same level, initial encounter; M25.551 Pain in right hip; T45.1X5A Adverse effect of antineoplastic and immunosuppressive drugs, initial encounter; R32 Unspecified urinary incontinence; K59.00 Constipation, unspecified; Y92.009 Unspecified place in unspecified non-institutional (private) residence as the place of occurrence of the external cause; Z90.710 Acquired absence of both cervix and uterus; Z87.891 Personal history of nicotine dependence; Z82.49 Family history of ischemic heart disease and other diseases of the circulatory system; Z88.1 Allergy status to other antibiotic agents; Z88.8 Allergy status to other drugs, medicaments and biological substances; Z91.040 Latex allergy status; Z85.3 Personal history of malignant neoplasm of breast; Z92.3 Personal history of irradiation; Z86.14 Personal history of Methicillin resistant Staphylococcus aureus infection; Z88.0 Allergy status to penicillin
CPT/HCPCS: 36415; 71020; 72158; 72192; 78306; 80048; 80053; 81003; 82607; 82728; 83540; 83550; 83690; 83735; 83921; 85025; 86140; 86304; 86850; 86900; 86901; 86922; 87641; 93005; 94760; 99232; 99233; 99239; 99284; A9270-GY; A9503; A9579; J1100; J1200; J1642; J1644; J1940; J2405; J3420; J3475; J3480; J9045; J9267; L0486; P9040

== ENCOUNTER 2017-08-16 16:11 | Emergency (ER) | payer MEDICARE ==
--- NOTE | 2017-08-16 17:17 | RAD ---
HISTORY: Shortness breath, cough COMPARISONS: February 27, 2017, CT dated August 10, 2017 VIEWS: 4: Frontal dual-energy and lateral views of the chest. FINDINGS: CARDIOMEDIASTINAL SILHOUETTE: The cardiomediastinal silhouette is normal. ELADIA: The eladia are normal. PLEURA: There is blunting of left costophrenic angle. LUNG PARENCHYMA: There are innumerable pulmonary parenchymal nodules throughout both lung conroy. These have developed when compared to the previous examination. These correspond to nodules noted on the CT dated August 10, 2017. ABDOMEN: The upper abdomen is clear. There is no subphrenic gas. BONES AND SOFT TISSUES: No bone or soft tissue abnormalities are noted. OTHER: A right-sided chest port is noted IMPRESSION: NOTED ON THE PREVIOUS CT, THERE ARE NUMERABLE PULMONARY PARENCHYMAL NODULES WITH A SMALL LEFT PLEURAL EFFUSION.
[2017-08-16 18:32] VITALS: BP 149/69
--- NOTE | 2017-08-16 20:58 | UC ---
Margarito Barrera Stephanie, scribed for Favio Ortiz MD on 08/16/17 at 1758 . Respiratory Complaint HPI - HPI Summary HPI Summary: The pt is an 82 y/o F presenting to with c/o SOB that began the week of 07/19 but became worse yesterday. Symptoms include decreased oral intake, productive cough with thick clear mucus,weakness, upper middle back pain, chills , and dry mouth. The pt denies fever and dysuria. Per daughter, the pt has decreased calf edema today compared to usual. The pt reports bouts of diarrhea for 2 days one week ago. - History of Current Complaint Chief Complaint: UCRespiratory Stated Complaint: DIFFICULTY BREATHING,COUGH Time Seen by Provider: 08/16/17 17:44 Hx Obtained From: Patient, Family/[employer]der - daughter ?: No Onset/Duration: Lasting Weeks, Still Present, Worse Since - yesterday Timing: Constant Pain Intensity: 3 Pain Scale Used: 0-10 Numeric Character: Cough: Nonproductive Aggravating Factors: Nothing Alleviating Factors: Nothing Associated Signs And Symptoms: Positive: Chills. Negative: Fever - Allergies/Home Medications Allergies/Adverse Reactions: Allergies Allergy/AdvReac Type Severity Reaction Status Date / Time Penicillins Allergy Unknown Rash Verified 08/16/17 16:21 Vancomycin Allergy Unknown RED MAN Verified 08/16/17 16:21 SYNDROME Adhesive Tape Allergy SKIN Verified 08/16/17 16:21 REDNESS Latex Allergy RASH AND Verified 08/16/17 16:21 ITCHY Home Medications: Home Medications Metoprolol Succinate [Metoprolol Succinate ER] 1 tab PO DAILY 08/16/17 [History Confirmed 08/16/17] PMH/Surg Hx/FS Hx/Imm Hx Respiratory History: COPD Cancer History: Breast Cancer, Other Other Cancer History: Ovarian cancer - Surgical History Surgical History: Yes Surgery Procedure, Year, and Place: 09/2010- [place] [place] 11/2010 - [place] [place] TONSILLECTOMY A CHILD. LEFT INGUINAL [place]IA [place]PAIR [place] [place] RIGHT INGUINAL HERNIA REPAIR-[facility]. PORT RT SIDE. 09/07/2012- VENTRAL HERNIA REPAIR-[facility]. VAGINAL HYSTERECTOMY[place] [place] RIGHT BREAST L[place]PECTOMY[place] [place]. EYE SURGERY-[facility] - Family History Known Family History: Positive: Hypertension - Social History Occupation: Retired Lives: Alone Alcohol Use: None Substance Use Type: None Smoking Status (MU): Former Smoker Amount Used/How Often: 1/2 PPD X 50 YEARS When Did the Patient Quit Smoking/Using Tobacco: 2004 - Immunization History Most Recent Influenza Vaccination: fall Most Recent Pneumonia Vaccination: <10 yrs Review of Systems Constitutional: Chills ENT: Other - dry mouth Respiratory: Cough - productive with thick clear mucus Musculoskeletal: Other: - upper middle back pain Neurological: Weakness All Other Systems Reviewed And Are Negative: Yes Physical Exam Triage Information Reviewed: Yes Vital Signs: Initial Vital Signs Temp 98.2 F 08/16/17 16:17 Pulse 95 08/16/17 16:17 Resp 24 08/16/17 16:17 BP 146/62 08/16/17 16:17 Pulse Ox 96 08/16/17 16:17 Vital Signs Reviewed: Yes - Additional Comments General: well-appearing, no pain distress Skin: dry, Lower legs erythematous with dry skin, legs not hot to touch, legs nontender. Head: normal Eyes: EOMI, GRETA ENT: normal Neck: supple, nontender Respiratory: ronchi, breath sounds present Cardiovascular: RRR Abdomen: soft, nontender Bowel: present Musculoskeletal: normal, strength/ROM intact Neurological: normal, sensory/motor intact, A&O x3 Psychological: affect/mood appropriate UC Diagnostic Evaluation - Laboratory O2 Sat by Pulse Oximetry: 96 - Radiology Xray Interpretation: Positive (See Comments) - CXR Radiology Interpretation Completed By: Radiologist - THERE ARE NUMERABLE PULMONARY PARENCHYMAL NODULES WITH SMALL LEFT PLEURAL EFFUSION Respiratory Course/Dx - Course Course Of Treatment: Medications reviewed. DISCUSSED WITH DR CHANEY WHO RECOMMENDED ADMISSION AND DR VIVAS. DISCUSSED ADMISSION TO THE HOSPITAL WITH THE PATIENT AND HER FAMILY. THEY WILL GO TO THE EMERGENCY DEPARTMENT. - Differential Dx/Diagnosis Provider Diagnoses: SHORTNESS OF BREATH. WEAKNESS. BACK PAIN Discharge - Discharge Plan Condition: Stable Disposition: HOME Patient Education Materials: Weakness (ED), Shortness of Breath (ED) Referrals: Osmany Marinelli DO [Primary Care Provider] - Additional Instructions: GO DIRECTLY TO THE EMERGENCY DEPARTMENT FOR YOUR SHORTNESS OF BREATH AND WEAKNESS. The documentation as recorded by the Mragarito fuller Stephanie accurately reflects the service I personally performed and the decisions made by me, Favio Ortiz MD.
== END 2017-08-16 19:27 | disposition home or self-care (01) ==
LOC: UCEAST 16:11
DX: R06.02 Shortness of breath (principal); R53.1 Weakness; M54.9 Dorsalgia, unspecified; J44.9 Chronic obstructive pulmonary disease, unspecified; Z85.3 Personal history of malignant neoplasm of breast; Z85.43 Personal history of malignant neoplasm of ovary; Z88.1 Allergy status to other antibiotic agents; Z91.040 Latex allergy status; Z88.0 Allergy status to penicillin; Z91.048 Other nonmedicinal substance allergy status; Z87.891 Personal history of nicotine dependence
CPT/HCPCS: 71046; 99212; G0463

== ENCOUNTER 2017-08-16 19:47 | Inpatient (IN) | payer MEDICARE ==
[2017-08-16 20:34] LABS: Hematocrit 34 % (35-47); Hemoglobin 10.9 g/dl (12.0-16.0); Mean Corpuscular HGB Conc 33 g/dl (31-36); Mean Corpuscular Hemoglobin 31 pg (27-31); Mean Corpuscular Volume 94 fL (80-97); Mean Platelet Volume 8 um3 (7.4-10.4); Platelet Count 380 10^3/ul (150-450); Red Blood Count 3.56 10^6/ul (4.0-5.4); Red Cell Distribution Width 14 % (10.5-15)
[2017-08-16 20:46] LABS: INR 1.04 (0.77-1.02)
[2017-08-16 20:51] LABS: EGFR Non-African American 35.7 (>60)
[2017-08-16 20:55] LABS: ABS Basophils 0.1 10^3/ul (0-0.2); ABS Eosinophils 0 10^3/ul (0-0.6); ABS Lymphocytes 0.6 10^3/ul (1.0-4.8); ABS Monocytes 1.7 10^3/ul (0-0.8); ABS Neutrophils 9.6 10^3/ul (1.5-7.7); ABS Nucleated RBC 0 10^3/ul; Eosinophil % 0.2 % (0-6); Lymphocyte % 5.3 % (25-47); Nucleated Red Blood Cells % 0
[2017-08-16] MEDS ORDERED: NS 0.9% 1000 ML* 1,000 ML IV ONE (21:01)
[2017-08-16] MEDS ORDERED: Azithromycin IV(*) 500 MG in NS 0.9% 250 ML* 250 ML IVPB ONE (21:01)
[2017-08-16] MEDS ORDERED: cefTRIAXone(*) 1 GM in NS 0.9% 50 ML* 50 ML IVPB ONE (21:02)
[2017-08-16] MEDS ORDERED: Acetaminophen TAB* 325 MG PO ONE (21:20)
[2017-08-16] MEDS ORDERED: traMADol TAB* 50 MG PO PRN (22:33)
[2017-08-16] MEDS ORDERED: Ondansetron INJ* 2 MG/ML VIAL IV PRN (22:33)
[2017-08-16] MEDS ORDERED: oxyCODONE TAB* 5 MG TAB PO PRN (22:33)
--- NOTE | 2017-08-16 22:38 | HP ---
H&P (Free Text) History and Physical: PCP: Blanca Marinelli MD Date/Time: 08/16/2017 2150 CC: increased generalized weakness & SOB HPI: Mrs López is an 82YO female HX ovarian CA who has not been on treatment since February 2017 reportedly in order to attend subacute rehab for a traumatic L3 compression FX w/ retropulsion, R breast CA, & COPD. Tonight she presents with 2 weeks of worsening SOB, generalized weakness, & functional decline. She reports central mid-back pain, but denies cough, congestion, F/C, sweats, N/V, chest pain, palpitations, or other issues. She has had some frequent watery diarrhea, <10 episodes daily for the last couple of days without bloody/black aspect. Approximately 10days ago she took a partial left-over coarse of cephalexin without improvement. CT from 08/10/2016 shows too numerous to count, increasing number & size of B pulmonary nodules. PMedHx ovarian CA R breast CA HTN gastric ulcer COPD GERD Ambulatory Orders Omeprazole CAP* [Prilosec CAP* 20 MG] 20 mg PO QAM 07/28/12 Triamcinolone 0.1% OINT* 1 admin TOPICAL DAILY PRN 08/31/12 Albuterol inh POWDER (NF) [Proair Respiclick] 2 puff INH Q4H PRN 01/24/16 Calcium Carbonate-Vitamin D [Calcium 600 + D 600-400 mg-Unit] 1 tab PO DAILY Cholecalciferol TAB* [Vitamin D TAB*] 1,000 unit PO DAILY 01/24/16 Umeclidin/Vilant 62.5 MDI(NF) [ANORO 62.5/25 Ellipta DEVICE (NF)] 1 inh INH QPM 01/24/16 Chlorpheniramine Maleate [Aller-Chlor] 4 mg PO QAM PRN 11/28/16 Acetaminophen TAB* [Tylenol TAB*] 650 mg PO Q4H PRN #0 tab MDD call [facility] for any fevers 03/03/17 Benzonatate CAP* [Tessalon 100 MG CAP*] 100 mg PO BID PRN #0 cap 03/03/17 Lisinopril TAB* [Prinivil TAB 10 MG*] 10 mg PO DAILY tab 03/03/17 Nystatin TOP POWDER* 1 applic TOPICAL TID btl 03/03/17 Metoprolol Succinate [Metoprolol Succinate ER] 1 tab PO DAILY 08/16/17 Allergies Penicillins Allergy (Unknown, Verified 08/16/17 16:21) Rash Vancomycin Allergy (Unknown, Verified 08/16/17 16:21) RED MAN SYNDROME HAS HAD SINCE WITHOUT PROBLEM Adhesive Tape Allergy (Verified 08/16/17 16:21) SKIN REDNESS Latex Allergy (Verified 08/16/17 16:21) RASH AND ITCHY SocHx: former smoker, no alcohol or recreational drugs; retired; full code status, needs follow up FamHx: positive for breast CA, lung CA, CAD ROS: as above, otherwise reviewed and all were negative vitals: Vital Signs Temp 36.6 C 08/17/17 00:15 Pulse 91 08/17/17 00:15 Resp 24 08/17/17 00:15 BP 145/59 08/17/17 00:15 Pulse Ox 96 08/17/17 00:15 Intake & Output 08/16/17 08/16/17 08/17/17 11:59 23:59 11:59 Intake Total 1300 Balance 1300 Weight 79.379 kg Intake: IV Fluids 1300 Constitutional: NAD, normally developed, obese elderly white female HEENM: atraumatic; sclera/conjunctiva: anicteric/clear; hearing: clinically mildly decreased; oropharynx: clear, mucosa tacky Neck: soft tissue: non-tender; thyroid: normal Pulmonary: diminished w/ scant diffuse crackles B, fair to poor aeration, no accessory muscle use CV: RR/RR, normal S1S2, no carotid bruit, no jugular venous distention, 2+ B DP/ PT, no edema Abdominal: soft, non-distended, non-tender, no rebound/guarding/rigidity, normoactive bowel sounds, no hepatosplenomegaly or masses, no costovertebral angle tenderness Musculoskeletal: general: grossly intact, no tenderness w/ palpation Integumental: normal appearance & texture of exposed skin, new non-tender mobile subcutaneous nodule L supero-posterior neck Psychiatric orientation: AA&O to PPS affect: flat mood: cooperative eye contact: fair content: reliable responses: timely insight: fair to good Testing: Lab Results 08/16/17 08/16/17 08/16/17 Range/Units 20:05 20:05 20:05 WBC 12.0 H (3.5-10.8) 10^3/ul RBC 3.56 L (4.0-5.4) 10^6/ul Hgb 10.9 L (12.0-16.0) g/dl Hct 34 L (35-47) % MCV 94 (80-97) fL MCH 31 (27-31) pg MCHC 33 (31-36) g/dl RDW 14 (10.5-15) % Plt Count 380 (150-450) 10^3/ul MPV 8 (7.4-10.4) um3 Neut % (Auto) 79.7 (38-83) % Lymph % (Auto) 5.3 L (25-47) % [place] % (Auto) 14.2 H (1-9) % Eos % (Auto) 0.2 (0-6) % Baso % (Auto) 0.6 (0-2) % Absolute Neuts (auto) 9.6 H (1.5-7.7) 10^3/ul Absolute Lymphs (auto) 0.6 L (1.0-4.8) 10^3/ul Absolute Monos (auto) 1.7 H (0-0.8) 10^3/ul Absolute Eos (auto) 0 (0-0.6) 10^3/ul Absolute Basos (auto) 0.1 (0-0.2) 10^3/ul Absolute Nucleated RBC 0 10^3/ul Nucleated RBC % 0 INR (Anticoag Therapy) (0.77-1.02) Sodium 136 (133-145) mmol/L Potassium 4.5 (3.5-5.0) mmol/L Chloride 99 L (101-111) mmol/L Carbon Dioxide 28 (22-32) mmol/L Anion Gap 9 (2-11) mmol/L BUN 47 H (6-24) mg/dL Creatinine 1.41 H (0.51-0.95) mg/dL Est GFR ( Amer) 45.9 (>60) Est GFR (Non-Af Amer) 35.7 (>60) BUN/Creatinine Ratio 33.3 H (8-20) Glucose 122 H (70-100) mg/dL Lactic Acid (0.5-2.0) mmol/L Calcium 10.8 H (8.6-10.3) mg/dL Total Bilirubin 0.40 (0.2-1.0) mg/dL AST 16 (13-39) U/L ALT 5 L (7-52) U/L Alkaline Phosphatase 103 (34-104) U/L Troponin I 0.04 H* (<0.04) ng/mL C-Reactive Protein 104.93 H (< 5.00) mg/L B-Natriuretic Peptide 205 H ( - 100) pg/mL Total Protein 7.4 (6.4-8.9) g/dL Albumin 3.8 (3.2-5.2) g/dL Globulin 3.6 (2-4) g/dL Albumin/Globulin Ratio 1.1 (1-3) 08/16/17 08/16/17 Range/Units 20:05 20:05 WBC (3.5-10.8) 10^3/ul RBC (4.0-5.4) 10^6/ul Hgb (12.0-16.0) g/dl Hct (35-47) % MCV (80-97) fL MCH (27-31) pg MCHC (31-36) g/dl RDW (10.5-15) % Plt Count (150-450) 10^3/ul MPV (7.4-10.4) um3 Neut % (Auto) (38-83) % Lymph % (Auto) (25-47) % [place] % (Auto) (1-9) % Eos % (Auto) (0-6) % Baso % (Auto) (0-2) % Absolute Neuts (auto) (1.5-7.7) 10^3/ul Absolute Lymphs (auto) (1.0-4.8) 10^3/ul Absolute Monos (auto) (0-0.8) 10^3/ul Absolute Eos (auto) (0-0.6) 10^3/ul Absolute Basos (auto) (0-0.2) 10^3/ul Absolute Nucleated RBC 10^3/ul Nucleated RBC % INR (Anticoag Therapy) 1.04 H (0.77-1.02) Sodium (133-145) mmol/L Potassium (3.5-5.0) mmol/L Chloride (101-111) mmol/L Carbon Dioxide (22-32) mmol/L Anion Gap (2-11) mmol/L BUN (6-24) mg/dL Creatinine (0.51-0.95) mg/dL Est GFR ( Amer) (>60) Est GFR (Non-Af Amer) (>60) BUN/Creatinine Ratio (8-20) Glucose (70-100) mg/dL Lactic Acid 1.5 (0.5-2.0) mmol/L Calcium (8.6-10.3) mg/dL Total Bilirubin (0.2-1.0) mg/dL AST (13-39) U/L ALT (7-52) U/L Alkaline Phosphatase (34-104) U/L Troponin I (<0.04) ng/mL C-Reactive Protein (< 5.00) mg/L B-Natriuretic Peptide ( - 100) pg/mL Total Protein (6.4-8.9) g/dL Albumin (3.2-5.2) g/dL Globulin (2-4) g/dL Albumin/Globulin Ratio (1-3) ECG, personally reviewed: sinus 1st degree AV block rate 95 w/ frequent PACs, no ischemia CXR, personally reviewed: IMPRESSION: NOTED ON THE PREVIOUS CT, THERE ARE NUMERABLE PULMONARY PARENCHYMAL NODULES WITH A SMALL LEFT PLEURAL EFFUSION. CT chest/abd/pel W (08/10/2016): IMPRESSION: 1. THERE HAS BEEN SIGNIFICANT INTERVAL PROGRESSION OF MULTIPLE PULMONARY PARENCHYMAL NODULES, INCREASED IN SIZE AND NUMBER COMPARED TO MAY 07, 2017. 2. THERE HAS BEEN INTERVAL DEVELOPMENT OF MEDIASTINAL LYMPH- ADENOPATHY. 3. THERE HAS BEEN INTERVAL DEVELOPMENT OF A SUBCUTANEOUS NODULE OF THE LEFT UPPER ARM. 4. THERE HAS BEEN INTERVAL DEVELOPMENT OF A PARAVERTEBRAL SOFT TISSUE MASS AT T4. 5. THERE HAS BEEN INTERVAL PROGRESSION OF RETROPERITONEAL LYMPH- ADENOPATHY. 6. OVERALL, IMPRESSION IS OF SIGNIFICANT PROGRESSION OF METASTATIC DISEASE. 7. BILATERAL PLEURAL EFFUSIONS. 8. ATHEROSCLEROSIS. 9. STABLE MULTISEPTATE PELVIC MASS. 10. AGAIN NOTED IS COMPRESSION DEFORMITY OF L3 WITH SEVERE NARROWING OF THE CENTRAL CANAL AT THIS LEVEL. Impression: 82F HX ovarian & R breast CA now with increasing number and size of numerous B pulmonary nodules associated with progressive SOB and generalized weakness; WILBERT likely 2nd dehydration DIAGNOSIS & PLAN Primary too numerous to count B pulmonary nodules w/ HX R breast CA & ovarian CA : oncology to evaluate & manage SOB : supplemental oxygen generalized weakness : PT/OT evaluations WILBERT, suspect pre-renal : IVFs, trend : hold lisinopril for now central mid-back pain 2nd metastatic disease : pain control Secondary HTN : continue metoprolol : hold lisinopril in setting of WILBERT gastric ulcer COPD : albuterol nebs PRN : continue Anoro 62.12/18 GERD : continue omeprazole Admission Rational: inpatient for evaluation of multiple B pulmonary nodules not expected to be complete w/i 48H to allow for discharge DVTp: heparin SQ & SCDs Code Status: full, needs follow up HCP: daughter, Heather Hayes
[2017-08-16] MEDS ORDERED: NS 0.9% 1000 ML* 1,000 ML IV SCH (22:45)
[2017-08-17] MEDS: Albuterol 2.5 MG/3 ML NEB.SOL* (0.083%) INH PRN (05:45)
[2017-08-17] MEDS: Omeprazole CAP* 20 MG PO SCH (06:18)
[2017-08-17 06:45] LABS: Hematocrit 32 % (35-47); Hemoglobin 10.5 g/dl (12.0-16.0); Mean Corpuscular HGB Conc 33 g/dl (31-36); Mean Corpuscular Hemoglobin 31 pg (27-31); Mean Corpuscular Volume 94 fL (80-97); Mean Platelet Volume 8 um3 (7.4-10.4); Platelet Count 340 10^3/ul (150-450); Red Blood Count 3.35 10^6/ul (4.0-5.4); Red Cell Distribution Width 14 % (10.5-15); White Blood Count 10.8 10^3/ul (3.5-10.8)
[2017-08-17 07:03] LABS: EGFR Non-African American 40.3 (>60)
--- NOTE | 2017-08-17 09:01 | PN ---
Progress Note - Progress Note Date of Service: 08/17/17 SOAP: Subjective: []More SOB over last two weeks. Worse yesterday. Had been scheduled in clinic on Thursday but felt to weak to come in. Then yesterday SOB progressed and came to ER. Long standing back pain but now more pain in mid spine and ribs. No fevers or chills. Has weakness in right leg, chronic. Not sure if has had more swelling in legs. No fevers, not sure if has any swelling in legs. Acetaminophen (Tylenol Tab*) 650 mg PO Q6H PRN PRN Reason: FEVER/PAIN Albuterol (Ventolin 2.5 Mg/3 Ml Neb.Bia*) 2.5 mg INH Q2H PRN PRN Reason: SOB/WHEEZING Last Admin: 08/17/17 05:45 Dose: 2.5 mg Azithromycin (Zithromax Tab*) 500 mg PO DAILY@2100 [facility] Docusate Sodium (Colace Cap*) 200 mg PO BID [facility] Sodium Chloride (Ns 0.9% 1000 Ml*) 1,000 mls @ 85 mls/hr IV PER RATE [facility] Last Admin: 08/17/17 00:25 Dose: 85 mls/hr Ceftriaxone Sodium 1,000 mg/ (Sodium Chloride) 50 mls @ 200 mls/hr IVPB Q24H [facility] Melatonin (Melatonin (Nf)) 3 mg PO BEDTIME PRN; Protocol PRN Reason: Sleep Omeprazole (Prilosec Cap*) 20 mg PO DAILY@0600 [facility] Last Admin: 08/17/17 06:18 Dose: 20 mg Ondansetron HCl (Zofran Inj*) 4 mg IV Q6H PRN PRN Reason: NAUSEA Oxycodone HCl (Roxycodone Tab*) 2.5 mg PO Q4H PRN PRN Reason: PAIN Tramadol HCl (Ultram*) 50 mg PO Q6H PRN PRN Reason: PAIN Objective: [] Vital Signs Temp Pulse Resp BP Pulse Ox 97.9 F 105 24 145/59 98 08/17/17 00:15 08/17/17 05:47 08/17/17 05:47 08/17/17 00:15 08/17/17 05:47 HEENT - pale, no JVD Central congestion, no wheezing no consolidation. RRR S1S2 +BS, diffuse tenderness, no rebound, not distended. Ext +1 edema both ankles. Abnormal Lab Results 08/16/17 08/16/17 08/16/17 20:05 20:05 20:05 WBC 12.0 H RBC 3.56 L Hgb 10.9 L Hct 34 L MCV 94 MCH 31 MCHC 33 RDW 14 Plt Count 380 MPV 8 Neut % (Auto) 79.7 Lymph % (Auto) 5.3 L Randolph % (Auto) 14.2 H Eos % (Auto) 0.2 Baso % (Auto) 0.6 Absolute Neuts (auto) 9.6 H Absolute Lymphs (auto) 0.6 L Absolute Monos (auto) 1.7 H Absolute Eos (auto) 0 Absolute Basos (auto) 0.1 Absolute Nucleated RBC 0 Nucleated RBC % 0 INR (Anticoag Therapy) Sodium 136 Potassium 4.5 Chloride 99 L Carbon Dioxide 28 Anion Gap 9 BUN 47 H Creatinine 1.41 H Est GFR ( Amer) 45.9 Est GFR (Non-Af Amer) 35.7 BUN/Creatinine Ratio 33.3 H Glucose 122 H Lactic Acid Calcium 10.8 H Total Bilirubin 0.40 AST 16 ALT 5 L Alkaline Phosphatase 103 Troponin I 0.04 H* C-Reactive Protein 104.93 H B-Natriuretic Peptide 205 H Total Protein 7.4 Albumin 3.8 Globulin 3.6 Albumin/Globulin Ratio 1.1 08/16/17 08/16/17 08/17/17 20:05 20:05 06:29 WBC RBC Hgb Hct MCV MCH MCHC RDW Plt Count MPV Neut % (Auto) Lymph % (Auto) Randolph % (Auto) Eos % (Auto) Baso % (Auto) Absolute Neuts (auto) Absolute Lymphs (auto) Absolute Monos (auto) Absolute Eos (auto) Absolute Basos (auto) Absolute Nucleated RBC Nucleated RBC % INR (Anticoag Therapy) 1.04 H Sodium 139 Potassium 4.2 Chloride 104 Carbon Dioxide 25 Anion Gap 10 BUN 44 H Creatinine 1.27 H Est GFR ( Amer) 51.8 Est GFR (Non-Af Amer) 40.3 BUN/Creatinine Ratio 34.6 H Glucose 114 H Lactic Acid 1.5 Calcium 9.9 Total Bilirubin AST ALT Alkaline Phosphatase Troponin I 0.05 H* C-Reactive Protein B-Natriuretic Peptide Total Protein Albumin Globulin Albumin/Globulin Ratio 08/17/17 06:29 WBC 10.8 RBC 3.35 L Hgb 10.5 L Hct 32 L MCV 94 MCH 31 MCHC 33 RDW 14 Plt Count 340 MPV 8 Neut % (Auto) Lymph % (Auto) Randolph % (Auto) Eos % (Auto) Baso % (Auto) Absolute Neuts (auto) Absolute Lymphs (auto) Absolute Monos (auto) Absolute Eos (auto) Absolute Basos (auto) Absolute Nucleated RBC Nucleated RBC % INR (Anticoag Therapy) Sodium Potassium Chloride Carbon Dioxide Anion Gap BUN Creatinine Est GFR ( Amer) Est GFR (Non-Af Amer) BUN/Creatinine Ratio Glucose Lactic Acid Calcium Total Bilirubin AST ALT Alkaline Phosphatase Troponin I C-Reactive Protein B-Natriuretic Peptide Total Protein Albumin Globulin Albumin/Globulin Ratio Assessment: []82 year old with ovarian cancer and long standing back pain from compression fracture that has limited mobility and QOL. Treated mid 2016 with Carbo/Taxol and had a very good response but therapy stopped because of compounding impact on QOL of therapy and her chronic back pain. Had been well but CT 08/10/17 with progressive cancer. Now with 2 weeks deteriorating respiratory status. Plan: []1. SOB. Could be progressive disease but given rapid progression of symptoms could be from acute cardiac disease, PE, infection not likely. - Check CTA - Check Echo - Will start Lovenox pending above. CrCl 42, give 1 mg/kg bid 2. Increased Cr. Will follow with hydration. 3. Back pain. I do not see clear bone disease on the CT, there is a posterior RUL mass adjacent to chest wall. Will hold on MRI at this time will need in futere. 4. Pain control. Will start long acting narcotic, Oxycontin 10 mg bid. 5. Discussed recurrent cancer and chemotherapy but only if breathing improves.
[2017-08-17] MEDS: Docusate CAP* 100 MG PO SCH ×2 (09:16→21:21)
[2017-08-17] MEDS ORDERED: Iodixanol* (CONTRAST) 320 MG/ML 100 ML SDV IV ONE (09:36)
[2017-08-17] MEDS ORDERED: Enoxaparin(*) 80 MG/0.8 ML SYR SUBCUT SCH (10:00)
--- NOTE | 2017-08-17 11:48 | ED ---
Lala Barrera Julia, scribed for Ulysses Boone MD on 08/16/17 at 2050 . Shortness of Breath - HPI Summary HPI Summary: This patient is a 82 year old F [facility] daughter with a chief complaint of worsening SOB since 07/20/18. Daughter reports very labored breathing at sleep. The patient rates pain 2/10 in severity. Patient has history of COPD and is on at home O2 using 2L at baseline. Patient was sent from Urgent care. - History of Current Complaint Chief Complaint: EDShortnessOfBreath Time Seen by Provider: 08/16/17 19:57 Hx Obtained From: Family/Title Insurance Sales Representative Onset/Duration: Gradual Onset Timing: Constant Dyspnea At: Rest Alleviating Factors: Nothing - Allergy/Home Medications Allergies/Adverse Reactions: Allergies Allergy/AdvReac Type Severity Reaction Status Date / Time Penicillins Allergy Unknown Rash Verified 08/16/17 16:21 Vancomycin Allergy Unknown RED MAN Verified 08/16/17 16:21 SYNDROME Adhesive Tape Allergy SKIN Verified 08/16/17 16:21 REDNESS Latex Allergy RASH AND Verified 08/16/17 16:21 ITCHY PMH/Surg Hx/FS Hx/Imm Hx Endocrine/Hematology History: Denies: Hx Diabetes Cardiovascular History: Reports: Hx Angina, Hx Hypercholesterolemia, Hx Hypertension, Other Cardiovascular Problems/Disorders - HTN, ON MEDS, missed beats Beth Barrera 11/29/16 admission Denies: Hx Congestive Heart Failure, Hx Coronary Artery Disease, Hx Myocardial Infarction, Hx Pacemaker/ICD, Hx Valvular Heart Disease Respiratory History: Reports: Hx Chronic Obstructive Pulmonary Disease (COPD) Denies: Hx Asthma GI History: Reports: Hx Gastroesophageal Reflux Disease - ON MEDICATION FOR, Hx Hiatal Hernia, Hx Jaundice - YELLOW JAUNDICE A CHILD History: Denies: Hx Renal Disease Musculoskeletal History: Reports: Hx Arthritis - LEFT SHOULDER, Other Musculoskeletal History - cellulitis Sensory History: Reports: Hx Cataracts - BILATERAL Denies: Hx Contacts or Glasses, Hx Hearing Aid Opthamlomology History: Reports: Hx Cataracts - BILATERAL Denies: Hx Contacts or Glasses Psychiatric History: Denies: Hx Panic Disorder - Cancer History Cancer Type, Location and Year: ovarian CA, RT BREAST CA Hx Chemotherapy: No Hx Radiation Therapy: Yes - Surgical History Surgery Procedure, Year, and Place: 09/2010- SIGMOID COLON SURGERY[place]. 11/2010 - ILEOSTOMY REMOVED-[facility]. TONSILLECTOMY A CHILD. LEFT INGUINAL HERNIA REPAIR -[facility]. RIGHT INGUINAL HERNIA REPAIR-[facility]. PORT RT SIDE. 09/07/2012- VENTRAL HERNIA REPAIR-[facility]. VAGINAL HYSTERECTOMY-[facility]. RIGHT BREAST LUMPECTOMY-[facility]. EYE SURGERY-[facility] Hx Anesthesia Reactions: No - Immunization History Date of Tetanus Vaccine: utd Date of Influenza Vaccine: utd Infectious Disease History: Denies: Traveled Outside the [place] in Last 30 Days Comment Only: Hx Hepatitis - YELLOW JAUNDICE A CHILD - Family History Known Family History: Positive: Hypertension - Social History Alcohol Use: None Hx Substance Use: No Substance Use Type: Reports: None Hx Tobacco Use: Yes Smoking Status (MU): Former Smoker Amount Used/How Often: 1/2 PPD X 50 YEARS Review of Systems Negative: Fever Positive: Shortness Of Breath All Other Systems Reviewed And Are Negative: Yes Physical Exam - Summary Physical Exam Summary: Appearance: The patient is well-nourished in no acute distress and in no acute pain. Skin: The skin is warm and dry and skin color reflects adequate perfusion. HEENT: The head is normocephalic and atraumatic. The pupils are equal and reactive. The conjunctivae are clear and without drainage. Nares are patent and without drainage. Mouth reveals moist mucous membranes and the throat is without erythema and exudate. The external ears are intact. The ear canals are patent and without drainage. The tympanic membranes are intact. Neck: the neck is supple with full range of motion and non-tender. There are no carotid bruits. There is no neck vein distension. Respiratory: Chest is non-tender. There are crackles in the L lung. Lung sounds are difficult to hear. Breath sounds are symmetrical and equal. Patient is tachypnic. There is no retraction or accessory muscle use. Cardiovascular: Heart is regular rate and rhythm. There is no murmur or rub auscultated. There is no peripheral edema and pulses are symmetrical and equal. Abdomen: The abdomen is soft and non-tender. There are normal bowel sounds heard in all four quadrants and there is no organomegaly palpated. Musculoskeletal: There is no back tenderness noted. Extremities are non-tender with full range of motion. There is good capillary refill. There is no peripheral edema or calf tenderness elicited. Neurological: Patient is alert and oriented to person, place and time. The patient has symmetrical motor strength in all four extremities. Cranial nerves are grossly intact. Deep tendon reflexes are symmetrical and equal in all four extremities. Psychiatric: The patient has an appropriate affect and does not exhibit any anxiety or depression Triage Information Reviewed: Yes Vital Signs On Initial Exam: Initial Vitals Temp Pulse Resp BP Pulse Ox 96.9 F 101 18 163/70 91 08/16/17 19:50 08/16/17 19:50 08/16/17 19:50 08/16/17 19:50 08/16/17 19:50 Vital Signs Reviewed: Yes - Chapin Coma Scale Coma Scale Total: 15 Diagnostics - Vital Signs Vital Signs Temp Pulse Resp BP Pulse Ox 08/16/17 20:16 28 08/16/17 20:13 95 08/16/17 19:50 96.9 F 101 18 163/70 91 - Laboratory Lab Results: Lab Results 08/16/17 Range/Units 20:05 WBC 12.0 H (3.5-10.8) 10^3/ul RBC 3.56 L (4.0-5.4) 10^6/ul Hgb 10.9 L (12.0-16.0) g/dl Hct 34 L (35-47) % MCV 94 (80-97) fL MCH 31 (27-31) pg MCHC 33 (31-36) g/dl RDW 14 (10.5-15) % Plt Count 380 (150-450) 10^3/ul MPV 8 (7.4-10.4) um3 Neut % (Auto) Pending Lymph % (Auto) Pending Hancock % (Auto) Pending Eos % (Auto) Pending Baso % (Auto) Pending Absolute Neuts (auto) Pending Absolute Lymphs (auto) Pending Absolute Monos (auto) Pending Absolute Eos (auto) Pending Absolute Basos (auto) Pending Absolute Nucleated RBC Pending Nucleated RBC % Pending Result Diagrams: 08/17/17 06:29 08/17/17 06:29 Lab Statement: Any lab studies that have been ordered have been reviewed, and results considered in the medical decision making process. - EKG 20:12 Cardiac Rate: NL EKG Rhythm: Sinus Rhythm - at 95 BPM Ectopy: PVCs EKG Interpretation: prolonged SD and 1st degree PVCs Course/Dx - Course Course Of Treatment: Ms. López was sent over from [facility] because she has respiratory insufficiency and her CXR shows multiple new nodules and possibly infiltrate. She was placed on O2 and labs were obtained while she was given fluids and antibiotics. Dr. Young is admitting her. - Diagnoses Provider Diagnoses: Respiratory insufficiency, Lung nodules, Pneumonia - Physician Notifications Discussed Care of Patient With: Dandy Salvador Time Discussed With Above Provider: 20:58 Instructed by Provider To: Admit As Inpatient Discharge - Discharge Plan Condition: Stable Disposition: ADMITTED TO [facility] documentation as recorded by the Lala fuller Julia accurately reflects the service I personally performed and the decisions made by me, Ulysses Boone MD.
--- NOTE | 2017-08-17 12:24 | RAD ---
HISTORY: Shortness of breath, cancer COMPARISONS: August 10, 2017 TECHNIQUE: Multiple contiguous axial CT scans of the chest were obtained after the administration of nonionic intravenous contrast, timed to the pulmonary arterial phase of contrast enhancement.. Coronal and sagittal multiplanar reformations are also submitted for review. FINDINGS: NECK AND THYROID: The lower neck and thyroid are unremarkable. CHEST WALL: There is no lower cervical, axillary, or supraclavicular lymphadenopathy by size criteria. A right-sided chest port is noted. Surgical clips are noted in the right axilla. HEART AND PERICARDIUM: The heart is unremarkable. AORTA AND PULMONARY VASCULATURE: There is no pulmonary arterial filling defect to suggest pulmonary embolism. There is no linear filling defect within the aorta to suggest aortic dissection. MEDIASTINUM: Again noted is mediastinal lymphadenopathy. ELADIA: There is no hilar lymphadenopathy by size criteria. AIRWAY AND ESOPHAGUS: The airway is unremarkable, without endobronchial filling defect. The esophagus is grossly normal. LUNG PARENCHYMA: Again noted are several pulmonary parenchymal nodules and masses as described on the previous examination. Again noted is a paravertebral mass of the right upper lobe. PLEURA: Again noted are bilateral pleural effusions, greater on the left than on the right. UPPER ABDOMEN: There is a moderate hiatal hernia. BONES AND SOFT TISSUES: As noted above, there is a paravertebral mass centered to the right of T4. OTHER: None. IMPRESSION: 1. AGAIN NOTED ARE MULTIPLE NODULES AND MASSES CONSISTENT WITH METASTATIC DISEASE TO THE LUNGS, WELL A RIGHT PARAVERTEBRAL MASS AND BILATERAL PLEURAL EFFUSIONS. THE APPEARANCE IS SIMILAR TO AUGUST 10, 2017. 2. THERE IS NO PULMONARY. NO FILLING DEFECTS TO SUGGEST PULMONARY EMBOLISM.
[2017-08-17] MEDS: NS 0.9% 1000 ML* 1,000 ML IV SCH ×2 (12:26→23:07)
[2017-08-17] MEDS ORDERED: Enoxaparin(*) 30 MG/0.3 ML SYR SUBCUT SCH (13:00)
[2017-08-17] MEDS: Acetaminophen TAB* 325 MG PO PRN ×2 (14:36→22:31)
[2017-08-17] MEDS: cefTRIAXone VIAL(*) 1,000 MG in NS 0.9% 50 ML* 50 ML IVPB SCH (21:18)
[2017-08-17] MEDS: oxyCODONE SR TAB(*) 10 MG TAB.SR PO SCH (21:21)
[2017-08-17] MEDS: Azithromycin TAB* 250 MG PO SCH (21:22)
[2017-08-17] MEDS: CMCS: Melatonin (NF) 3 MG TAB PO PRN (22:31)
[2017-08-18] MEDS: Omeprazole CAP* 20 MG PO SCH (05:12)
[2017-08-18 06:26] LABS: Hematocrit 33 % (35-47); Hemoglobin 10.5 g/dl (12.0-16.0); Mean Corpuscular HGB Conc 32 g/dl (31-36); Mean Corpuscular Hemoglobin 31 pg (27-31); Mean Corpuscular Volume 96 fL (80-97); Mean Platelet Volume 8 um3 (7.4-10.4); Platelet Count 365 10^3/ul (150-450); Red Blood Count 3.43 10^6/ul (4.0-5.4); Red Cell Distribution Width 14 % (10.5-15)
[2017-08-18 06:28] LABS: ABS Basophils 0 10^3/ul (0-0.2); ABS Eosinophils 0.2 10^3/ul (0-0.6); ABS Lymphocytes 1.1 10^3/ul (1.0-4.8); ABS Neutrophils 8.6 10^3/ul (1.5-7.7); ABS Nucleated RBC 0 10^3/ul; Eosinophil % 1.8 % (0-6); Lymphocyte % 9.1 % (25-47); Nucleated Red Blood Cells % 0.1
[2017-08-18 06:39] LABS: EGFR Non-African American 47.6 (>60)
[2017-08-18] MEDS: Docusate CAP* 100 MG PO SCH ×2 (09:14→21:18)
[2017-08-18] MEDS: oxyCODONE SR TAB(*) 10 MG TAB.SR PO SCH ×2 (09:15→21:19)
[2017-08-18] MEDS: NS 0.9% 1000 ML* 1,000 ML IV SCH ×2 (09:18→17:59)
[2017-08-18] MEDS: Enoxaparin(*) 30 MG/0.3 ML SYR SUBCUT SCH (12:56)
[2017-08-18] MEDS: Metoprolol Succinate XL TAB* 50 MG PO SCH (12:56)
--- NOTE | 2017-08-18 14:23 | ECHO ---
Patient: ILDEFONSO GIRALDO Rec#: [id number] : 1935 Date: 08/18/2017 Age: 82y Height: 160.02 cm / 63.0 in Weight: 78.02 kg / 172.0 lbs Sex: F BSA: 1.81 Room#: 401 Admit Date#: 08/16/2017 Type: Inpatient Referring: Alec Sands MD Reading: Morgan Decker MD Senior Quality Manager: Denisse Chaudhari RDCS CC: Osmany Marinelli DO Transthoracic Echocardiogram Indication: Dyspnea BP: 161/70 HR: 96 Rhythm: Heart Block Findings History: Ovarian cancer, right breast cancer, COPD, HTN, GERD, former smoker. Technical Comments: The study quality is fair. The study is technically limited due to the patient's history of COPD. Completed at 1400. Left Ventricle: The left ventricular chamber size is normal. Mild concentric left ventricular hypertrophy is observed. Global left ventricular wall motion and contractility are within normal limits. There is normal left ventricular systolic function. The estimated ejection fraction is 60-65%. The assessment of diastolic function is non-diagnostic. Left Atrium: The left atrium is mildly dilated. Right Ventricle: The right ventricle is mild to moderately dilated. The right ventricular global systolic function is normal. Right Atrium: The right atrium is moderately dilated. Aortic Valve: The aortic valve is trileaflet. The aortic valve leaflets are mildly thickened. There is aortic annular calcification. There is no evidence of aortic regurgitation. There is no evidence of aortic stenosis. Mitral Valve: There is mitral annular calcification. The mitral valve leaflets are mildly thickened. There is trace to mild mitral regurgitation. There is no evidence of mitral stenosis. Tricuspid Valve: The tricuspid valve leaflets are normal. There is mild to moderate tricuspid regurgitation. The right ventricular systolic pressure is estimated at 44 mmHg. There is evidence of mild to moderate pulmonary hypertension. There is no tricuspid stenosis. Pulmonic Valve: The pulmonic valve appears normal. There is a trace pulmonic regurgitation. There is no pulmonic stenosis. Pericardium: There is no significant pericardial effusion. A pericardial fat pad is visualized. Aorta: There is no dilatation of the ascending aorta. There is no dilatation of the aortic arch. The aortic root is normal in size. Pulmonary Artery: The main pulmonary artery appears normal. Venous: The inferior vena cava appears normal in size. There is a greater than 50% respiratory change in the inferior vena cava dimension. Summary: There are no significant changes when compared to the previous study done on 12/01/16 Conclusions Global left ventricular wall motion and contractility are within normal limits. There is normal left ventricular systolic function. The estimated ejection fraction is 60-65%. The assessment of diastolic function is non-diagnostic. There is no evidence of aortic regurgitation. There is trace to mild mitral regurgitation. There is mild to moderate tricuspid regurgitation. There is evidence of mild to moderate pulmonary hypertension. There is no significant pericardial effusion. Measurements Name Value Normal Range RVIDd (AP) 2D 2.6 cm (0.9 - 2.6) RVDdMajor (2D) 5.2 cm (2.2 - 4.4) RAd ISD 4CH 5.9 cm (3.4 - 4.9) RA (A4C)W 4.2 cm (2.9 - 4.6) IVSd (2D) 1.2 cm (0.6 - 1) LVPWd (2D) 1.2 cm (0.6 - 1) LVIDd (2D) 4 cm (3.6 - 5.4) LVIDs (2D) 2.2 cm - LV FS (2D) 45 % (25 - 45) Aortic Annulus 1.8 cm (1.4 - 2.6) Ao root diameter (2D) 3.2 cm (2.1 - 3.5) Ascending Ao 3.2 cm (2.1 - 3.4) Aortic arch 2.5 cm (1.8 - 3.4) LA dimension (AP) 2D 3.7 cm (2.3 - 3.8) LAd ISD 4CH 5.9 cm (2.9 - 5.3) LA ISD 4CH W 4.3 cm (2.5 - 4.5) Name Value Normal Range LA ESV SP 4CH (A/L) 59 ml - LA ESV SP 2CH (A/L) 62 ml - LA ESV BP (A/L) 63 ml - LA ESV BP (A/L) index 34 ml/m2 - LA ESV SP 4CH (MOD) 55 ml - LA ESV SP 2CH (MOD) 60 ml - Name Value Normal Range MV E-wave Vmax 1.7 m/sec - MV deceleration time 170.3 msec - LV septal e' Vmax 0.1 m/sec - LV lateral e' Vmax 0.18 m/sec - LV E:e' septal ratio 17 ratio - LV E:e' lateral ratio 9.44 ratio - Name Value Normal Range AV Vmax 1.7 m/sec - AV VTI 27.26 cm - AV peak gradient 11.41 mmHg - AV mean gradient 5.68 mmHg - LVOT diameter 2 cm - LVOT Vmax 1.27 m/sec - LVOT VTI 24.35 cm - LVOT peak gradient 6.51 mmHg - LVOT mean gradient 3.4 mmHg - KANE Vmax 0.73 m/sec - Name Value Normal Range TR Vmax 3.2 m/sec - TR peak gradient 41 mmHg - RAP 3 mmHg - RVSP 44 mmHg - IVC diameter 1.8 cm - Name Value Normal Range PV Vmax 1.34 m/sec - PV peak gradient 7.22 mmHg -
[2017-08-18] MEDS: Polyethylene Glycol 3350* 17 GM PACKET PO PRN (17:58)
[2017-08-18] MEDS: Albuterol 2.5 MG/3 ML NEB.SOL* (0.083%) INH PRN (20:48)
[2017-08-18] MEDS: cefTRIAXone VIAL(*) 1,000 MG in NS 0.9% 50 ML* 50 ML IVPB SCH (21:16)
[2017-08-18] MEDS: Azithromycin TAB* 250 MG PO SCH (21:19)
[2017-08-18] MEDS: CMCS: Melatonin (NF) 3 MG TAB PO PRN (23:58)
[2017-08-19] MEDS: Albuterol 2.5 MG/3 ML NEB.SOL* (0.083%) INH PRN ×2 (00:06→11:41)
[2017-08-19] MEDS: NS 0.9% 1000 ML* 1,000 ML IV SCH (04:09)
[2017-08-19] MEDS: Omeprazole CAP* 20 MG PO SCH (04:39)
[2017-08-19] MEDS: Polyethylene Glycol 3350* 17 GM PACKET PO PRN (08:09)
[2017-08-19] MEDS: Docusate CAP* 100 MG PO SCH ×2 (08:10→20:15)
[2017-08-19] MEDS: oxyCODONE SR TAB(*) 10 MG TAB.SR PO SCH ×2 (08:10→20:14)
[2017-08-19] MEDS: Metoprolol Succinate XL TAB* 50 MG PO SCH (08:10)
[2017-08-19] MEDS ORDERED: Furosemide IV* 10 MG/ML 2 ML VIAL (20 MG) IV ONE (12:04)
[2017-08-19] MEDS: Enoxaparin(*) 30 MG/0.3 ML SYR SUBCUT SCH (13:17)
[2017-08-19] MEDS: Acetaminophen TAB* 325 MG PO PRN (20:14)
[2017-08-19] MEDS: LORazepam TAB(*) 0.5 MG PO PRN (20:18)
[2017-08-20] MEDS: LORazepam TAB(*) 0.5 MG PO PRN (03:15)
[2017-08-20] MEDS: Acetaminophen TAB* 325 MG PO PRN (03:15)
[2017-08-20] MEDS: Morphine ORAL CONCENTRATE* 5 MG/0.25 ML ORAL.SYRIN SL PRN ×7 (03:32→21:51)
[2017-08-20 03:36] VITALS: BP 159/66
[2017-08-20] MEDS: Omeprazole CAP* 20 MG PO SCH (05:33)
[2017-08-20] MEDS ORDERED: LORazepam TAB(*) 0.5 MG PO PRN (08:36)
[2017-08-20] MEDS: Docusate CAP* 100 MG PO SCH ×2 (08:59→19:34)
[2017-08-20] MEDS: Metoprolol Succinate XL TAB* 50 MG PO SCH (08:59)
--- NOTE | 2017-08-20 09:45 | PN ---
Progress Note - Progress Note Date of Service: 08/20/17 SOAP: Subjective: []Decline overnight with increase respirations and effort. Has been declining morphine. Denies pain, but is understandably uncomfortable with respirations. Taking small bits of jello. Daughter at bedside. Medications: Acetaminophen (Tylenol Tab*) 650 mg PO Q6H PRN PRN Reason: FEVER/PAIN Last Admin: 08/19/17 20:14 Dose: 650 mg Albuterol (Ventolin 2.5 Mg/3 Ml Neb.Bia*) 2.5 mg INH Q2H PRN PRN Reason: SOB/WHEEZING Last Admin: 08/19/17 11:41 Dose: 2.5 mg Atropine Sulfate (Atropine 1% (Oral/Sl)*) 2 drop SL Q2H PRN PRN Reason: Discomfort/excessive secretion Docusate Sodium (Colace Cap*) 200 mg PO BID [facility] Last Admin: 08/20/17 08:59 Dose: Not Given Lorazepam (Ativan Tab(*)) 0.5 mg PO Q4H PRN PRN Reason: ANXIETY Metoprolol Succinate (Toprol Xl Tab*) 50 mg PO DAILY [facility] Last Admin: 08/20/17 08:59 Dose: Not Given Morphine Sulfate (Morphine Oral Concentrate*) 5 mg SL Q1H PRN PRN Reason: Pain, dyspnea, or restlessness Last Admin: 08/20/17 08:55 Dose: 5 mg Ondansetron HCl (Zofran Inj*) 4 mg IV Q6H PRN PRN Reason: NAUSEA Oxycodone HCl (Oxycontin(*)) 10 mg PO BID [facility] Last Admin: 08/19/17 20:14 Dose: 10 mg Polyethylene Glycol/Electrolytes (Miralax*) 17 gm PO DAILY PRN PRN Reason: CONSTIPATION Last Admin: 08/19/17 08:09 Dose: 17 gm Tramadol HCl (Ultram*) 50 mg PO Q6H PRN PRN Reason: PAIN Objective: [] Vital Signs Temp Pulse Resp BP Pulse Ox 97.7 F 107 32 159/66 96 08/20/17 03:18 08/20/17 07:14 08/20/17 08:55 08/20/17 03:18 08/20/17 07:14 Alert and oriented, though isn't asking answering question due to notable tachypnea and respiratory effort, answers are single words generally. HRR, tachypnea LS rhochous throughout Dry mucousa Assessment: []82 yo female with metastatic ovarian cancer including innumerable lung mets with plan to transition to hospice, however over last 12 hours has made a significant decline with signs and symptoms of imminent (likely 24 hours or so). She is reasonably comfortable, however her respirations are my biggest concern and I have strongly encouraged the use of liquid morphine to help decrease her effort and provide comfort. I discussed her rapid decline with her daughter and her. Plan: []1. Increase morphine concentrate frequency to qhour, but will keep low dose for now 2. Add atropine gtt for excess secretions Disposition: inpt. d/t comfort measures and rapid decline with concern that she will fail during a transport
[2017-08-20] MEDS: oxyCODONE SR TAB(*) 10 MG TAB.SR PO SCH ×2 (11:19→19:34)
[2017-08-20] MEDS: Atropine 1% (ORAL/SL)* 15 ML BTL SL PRN ×2 (11:52→20:19)
[2017-08-21] MEDS: Morphine ORAL CONCENTRATE* 5 MG/0.25 ML ORAL.SYRIN SL PRN ×4 (00:10→06:18)
[2017-08-21] MEDS: Docusate CAP* 100 MG PO SCH (09:13)
[2017-08-21] MEDS: oxyCODONE SR TAB(*) 10 MG TAB.SR PO SCH (09:14)
[2017-08-21] MEDS: Metoprolol Succinate XL TAB* 50 MG PO SCH (09:14)
--- NOTE | 2017-08-21 10:47 | PN ---
Progress Note - Progress Note Date of Service: 08/21/17 SOAP: Subjective: []She will orient to vioce but cannot respond. Secretions, gaging. Cannot move ext, cannot follow commands. Daughter reports gagging on morphine overnight. Appears comfortable on exam. Acetaminophen (Tylenol Tab*) 650 mg PO Q6H PRN PRN Reason: FEVER/PAIN Last Admin: 08/19/17 20:14 Dose: 650 mg Albuterol (Ventolin 2.5 Mg/3 Ml Neb.Bia*) 2.5 mg INH Q2H PRN PRN Reason: SOB/WHEEZING Last Admin: 08/19/17 11:41 Dose: 2.5 mg Atropine Sulfate (Atropine 1% (Oral/Sl)*) 2 drop SL Q2H PRN PRN Reason: Discomfort/excessive secretion Last Admin: 08/20/17 20:19 Dose: 2 drop Docusate Sodium (Colace Cap*) 200 mg PO BID [facility] Last Admin: 08/21/17 09:13 Dose: Not Given Lorazepam (Ativan Tab(*)) 0.5 mg PO Q4H PRN PRN Reason: ANXIETY Metoprolol Succinate (Toprol Xl Tab*) 50 mg PO DAILY [facility] Last Admin: 08/21/17 09:14 Dose: Not Given Morphine Sulfate (Morphine Oral Concentrate*) 5 mg SL Q1H PRN PRN Reason: Pain, dyspnea, or restlessness Last Admin: 08/21/17 06:18 Dose: 5 mg Ondansetron HCl (Zofran Inj*) 4 mg IV Q6H PRN PRN Reason: NAUSEA Oxycodone HCl (Oxycontin(*)) 10 mg PO BID [facility] Last Admin: 08/21/17 09:14 Dose: Not Given Polyethylene Glycol/Electrolytes (Miralax*) 17 gm PO DAILY PRN PRN Reason: CONSTIPATION Last Admin: 08/19/17 08:09 Dose: 17 gm Tramadol HCl (Ultram*) 50 mg PO Q6H PRN PRN Reason: PAIN Objective: [] Vital Signs Temp Pulse Resp BP Pulse Ox 97.7 F 90 16 159/66 98 08/20/17 03:18 08/21/17 10:40 08/21/17 10:40 08/20/17 03:18 08/21/17 10:40 oriented to voice, though isn't asking answering questions. tachypnea and respiratory effort, gagging HRR, tachypnea LS rhochous throughout Dry mucousa Assessment: She is on hospice and comfort care for end stage ovarian cancer. Had attempted discharge. However, gaging on secretions and cannot take oral medication, no sublingual pain medication second to gagging. Plan: 1. Comfort care 2. Change to IV Morphine and consider in patient hospice. 3. Stop oral meds, Ativan to IV 3. Expect she will in next 48 hrs.
[2017-08-21] MEDS ORDERED: Morphine INJ* 2 MG/ML 1 ML SYRINGE (TWO MG - NEW SYRINGE VERSION) IV PRN (10:48)
[2017-08-21] MEDS ORDERED: Acetaminophen SUPP* 650 MG SUPP PR PRN (10:49)
[2017-08-21] MEDS: Morphine INJ* 2 MG/ML 1 ML CARPUJECT IV PRN ×3 (13:00→22:18)
[2017-08-21] MEDS: Atropine 1% (ORAL/SL)* 15 ML BTL SL PRN (13:00)
[2017-08-21] MEDS: LORazepam INJ* 2 MG/ML 1 ML VIAL IV PUSH PRN (22:19)
[2017-08-22] MEDS: Morphine INJ* 2 MG/ML 1 ML CARPUJECT IV PRN ×3 (04:50→15:22)
[2017-08-22] MEDS: LORazepam INJ* 2 MG/ML 1 ML VIAL IV PUSH PRN ×3 (04:51→15:22)
--- NOTE | 2017-08-22 11:09 | PN ---
Progress Note - Progress Note Date of Service: 08/22/17 SOAP: Subjective: []More comfortable today. Breathing more rapid. Daughter in from [place], family is in room. Acetaminophen (Tylenol Supp*) 650 mg NM Q4H PRN PRN Reason: FEVER Albuterol (Ventolin 2.5 Mg/3 Ml Neb.Bia*) 2.5 mg INH Q2H PRN PRN Reason: SOB/WHEEZING Last Admin: 08/19/17 11:41 Dose: 2.5 mg Atropine Sulfate (Atropine 1% (Oral/Sl)*) 2 drop SL Q2H PRN PRN Reason: Discomfort/excessive secretion Last Admin: 08/21/17 13:00 Dose: 2 drop Lorazepam (Ativan Inj*) 1 mg IV PUSH Q4H PRN PRN Reason: ANXIETY Last Admin: 08/22/17 04:51 Dose: 1 mg Morphine Sulfate (Morphine Inj (Syringe)*) 2 mg IV Q1H PRN PRN Reason: PAIN Last Admin: 08/22/17 04:50 Dose: 2 mg Ondansetron HCl (Zofran Inj*) 4 mg IV Q6H PRN PRN Reason: NAUSEA Objective: [] Vital Signs Temp Pulse Resp BP Pulse Ox 97.7 F 90 20 159/66 98 08/20/17 03:18 08/21/17 10:40 08/22/17 07:22 08/20/17 03:18 08/22/17 03:32 not oriented to voice, tachypnea and respiratory effort, no gagging HRR, tachypnea LS rhochous throughout Dry mucousa skin dry. Assessment: She is on hospice and comfort care for end stage ovarian cancer. Had attempted discharge. However, gaging on secretions and cannot take oral medication, no sublingual pain medication second to gagging. Plan: 1. Comfort care 2. Continue IV Morphine and IV ativan to comfort 3. Expect she will in next 48 hrs.
[2017-08-22] MEDS: Atropine 1% (ORAL/SL)* 15 ML BTL SL PRN (11:30)
[2017-08-23] MEDS: Morphine INJ* 2 MG/ML 1 ML CARPUJECT IV PRN (02:20)
[2017-08-23] MEDS: LORazepam INJ* 2 MG/ML 1 ML VIAL IV PUSH PRN (02:20)
--- NOTE | 2017-08-29 11:02 | DS ---
AMENDED REPORT NOW INCLUDES DATE OF ADMISSION AND - ESIGNED BEFORE ADJUSTMENT DISCHARGE/ SUMMARY: DATE OF ADMISSION: 08/16/17 DATE OF DISCHARGE/: 08/23/17 DISCHARGE DIAGNOSES: 1. Metastatic ovarian cancer. 2. Respiratory failure. HOSPITAL COURSE: She was admitted with increasing respiratory failure and known progression of ovarian cancer. evaluation that showed her progressive respiratory distress was from increasing burden of disease. No reversible causes of dyspnea were found. After extensive discussion with Hospice, the patient was elected to comfort care measures only. She in the hospital with her family by her side. No pending studies. [id number]/[facility] #: [id number] MARIALUISA
== END 2017-08-23 06:30 | disposition expired | DRG 180 ==
LOC: ED 19:47 → MED 21:52
PROVIDERS: ADMIT Hospitalist; ATTEND Internal Medicine Hematology & Oncology
DX: C78.02 Secondary malignant neoplasm of left lung (principal); J96.90 Respiratory failure, unspecified, unspecified whether with hypoxia or hypercapnia; N17.9 Acute kidney failure, unspecified; E86.0 Dehydration; C56.9 Malignant neoplasm of unspecified ovary; C50.919 Malignant neoplasm of unspecified site of unspecified female breast; I10 Essential (primary) hypertension; G89.3 Neoplasm related pain (acute) (chronic); J44.9 Chronic obstructive pulmonary disease, unspecified; K21.9 Gastro-esophageal reflux disease without esophagitis; C78.01 Secondary malignant neoplasm of right lung; K25.9 Gastric ulcer, unspecified as acute or chronic, without hemorrhage or perforation; Z79.1 Long term (current) use of non-steroidal anti-inflammatories (NSAID); Z79.899 Other long term (current) drug therapy; Z88.1 Allergy status to other antibiotic agents; Z91.040 Latex allergy status; Z88.0 Allergy status to penicillin; Z91.048 Other nonmedicinal substance allergy status; Z87.891 Personal history of nicotine dependence; Z80.3 Family history of malignant neoplasm of breast; Z80.1 Family history of malignant neoplasm of trachea, bronchus and lung; Z82.49 Family history of ischemic heart disease and other diseases of the circulatory system; Z51.5 Encounter for palliative care
CPT/HCPCS: 36415; 71046; 71275; 80048; 80053; 83605; 83880; 84484; 85025; 85027; 85610; 86140; 87040; 87641; 93005; 93306; 94640; 94760; 99212; 99231; 99232; 99233; 99285; A9270-GY; G0463; J0456; J0696; J1650; J1940; J2060; J2270; Q9967